=== PATIENT | female | born 1970 | race Caucasian/White ===

== ENCOUNTER → 2018-04-11 | Outpatient (CLI) | payer MEDICARE, MEDICAID | LOC: LAB.O 13:14 | PROVIDERS: ATTEND Family Medicine | DX: K52.9 Noninfective gastroenteritis and colitis, unspecified (principal); E78.5 Hyperlipidemia, unspecified; E10.65 Type 1 diabetes mellitus with hyperglycemia ==

== ENCOUNTER → 2018-04-17 | Outpatient (CLI) | payer MEDICARE, MEDICAID ==
--- NOTE | 2018-04-17 10:11 | MRI ---
EXAM DESCRIPTION: Lumbar Spine w/o Contrast : Magnetic Resonance Imaging. CLINICAL HISTORY: DORSALGIA. Posterior Lumbar fusion since prior MRI scan.. COMPARISON: MRI scan lumbar spine without contrast 02/11/2012. TECHNIQUE: Multiplanar, multiple standard sequences, non contrast MRI, lumbar spine. FINDINGS: L5-S1: Visualized on T 2 axial sequence 501, image 3. Normal signal in the disc with disc space preserved. Bilateral facet arthrosis. Mild canal narrowing. Mild to moderate bilateral foraminal narrowing. L4-5: Bilateral posterior transpedicular fusion with unilateral connecting rods. Interbody fusion device with no significant amount of interosseous fusion. Posterior decompression. Moderate to severe bilateral foraminal narrowing more on the right. No abnormal intraspinal or extraspinal fluid collection or soft tissue edema. Modic type II endplate reactive changes midline and right of midline with disc spur complex encroaching on the right foramen. Spondylosis was not seen on the prior study. L3-4: Minimal disc desiccation with disc space preserved. Arthrosis left facet joint with hypertrophy flavum ligament. Mild bilateral foraminal narrowing and canal is patent. L2-3: Type I Modic endplate reactive changes to the right of midline with Schmorl's nodes and disc space loss. Marrow edema signal also seen in the right L3 pedicle, and the right L2 lamina. Anterior disc bulge and endplate ridging. Posterior broad-based disc osteophyte complex bulge into the canal more in the midline bilateral facet arthrosis and flavum ligament hypertrophy. AP canal diameter 7 mm. Narrowing of the right subarticular recess. Right side disc osteophyte complex encroaching on the foramen with moderate stenosis. Moderate narrowing of the left foramen. Spondylosis, Canal and foraminal stenosis, significantly change from the prior study. L1-2: Disc space preserved with minimal disc desiccation. Schmorl's nodes have enlarged since the prior study. No anterior posterior bulging. Flavum ligament hypertrophy and mild facet arthrosis. Bilateral mild foraminal narrowing more on the left. T12-L1: Schmorl's nodes stable since the prior study with minimal desiccation signal in the disc. Canal and foramina are patent. Facet joints unremarkable with hypertrophy flavum ligaments. Conus terminates at this level. Anterior Modic type II endplate reactive changes at T11-12 and bulging disc has progressed since the prior study. L1-L4 levoscoliosis stable since the prior study Paravertebral soft tissues negative.. Otherwise normal marrow signal in the remaining vertebral bodies and the posterior elements. Vertebral bodies are not compressed at any level. IMPRESSION: 1. Significant progression of L2-3 disc desiccation since 2011, with right side and posterior progression of spondylosis since 2012, resulting in stenosis of the canal and right foramen. Correlate for right L2 radiculopathy. Right subarticular recess narrowing or stenosis. Correlate for right L3 radiculopathy. 2. Posterior and interbody fusion at L4-5 since the prior study as well as progression of right side spondylosis and significant right foraminal encroachment. Correlate for right L4 radiculopathy. 3. More findings noted at other levels above. Electronically signed by: Damion Vargas MD 04/17/2018 10:09 AM [facility]
--- NOTE | 2018-04-18 17:22 | MAM ---
EXAM DESCRIPTION: 3D Screening BILATERAL : Digital Mammography. CLINICAL HISTORY: 47 years Female SCREEN . No complaints. No personal or family history of breast cancer. Childbirth. Hysterectomy 9 years ago. No HRT. Lifetime risk of developing breast cancer (Tyrer-Cuzick model)(%): 12.5%. COMPARISON: Baseline study at this facility.. No prior reports available. Lumbar MRI scan on the same visit. TECHNIQUE: Bilateral CC and MLO projection full-field images, digital tomosynthesis mammographic technique Bilateral digital 2-D full-field MLO images. CAD not available for tomosynthesis or 2-D images. FINDINGS: The breast parenchymal density pattern is: Scattered areas of fibroglandular density. No skin thickening or nipple retraction. Solitary microcalcification in the left breast. No new focal, stellate mass or density, focal asymmetry , and no suspicious microcalcifications bilaterally. IMPRESSION: Benign exam. BIRAD CATEGORY: 2 BENIGN FINDINGS. RECOMMENDATIONS: FOLLOW UP: Routine digital bilateral mammographic screening, one year interval from March 2018. Written communication explaining the IMPRESSION and follow-up, will be mailed to the patient and referring health care provider. According to the [employer], yearly mammograms are recommended starting at age 40 and continuing as long as a woman is in good health. Any breast change noted on a breast self-exam should be reported promptly to the patient's healthcare provider. Breast MRI is recommended for women with an approximately 20-25% or greater lifetime risk of breast cancer, including women with a strong family history of breast or ovarian cancer and women who have been treated for Hodgkin's disease. A negative mammographic report should not delay tissue diagnosis in patients with significant clinical history or physical findings. Extremely dense breast tissue limits the sensitivity of digital mammography. Electronically signed by: Damion Vargas MD 04/18/2018 5:21 PM [employer]
== END ==
LOC: MRI 07:00
PROVIDERS: ATTEND Family Medicine
DX: Z12.31 Encounter for screening mammogram for malignant neoplasm of breast (principal); M54.9 Dorsalgia, unspecified

== ENCOUNTER 2018-07-09 13:57 | Emergency (ER) | payer MEDICARE, MEDICAID ==
--- NOTE | 2018-07-09 14:11 | ED.PDOC ---
History of Present Illness - General Chief Complaint: Abdominal Pain Stated Complaint: abdominal pain Time Seen by Provider: 07/09/18 14:10 Information Source: patient Exam Limitations: no limitations - History of Present Illness Initial Comments: Elena Claros 47 y/o female came to ER with steady sharp rlq pain non radiating followed by abdominal cramps since this morning and had 4-5 episodes of vomiting.Denies hematemesis,dysuria ,hematochezia,hematuria,diarrhea.Had history of DM 2.Unable to take her diabetic medication today. Abdominal Pain Onset Location: RLQ Pain Radiation: no radiation Quality: moderate, cramping Timing/Duration: 7-24 hours Improving Factors: nothing Worsening Factors: nothing Associated Symptoms: other - see hpi Review of Systems - Review of Systems Constitutional: States: no symptoms reported EENTM: States: no symptoms reported Respiratory: States: no symptoms reported Cardiology: States: no symptoms reported Gastrointestinal/Abdominal: States: see HPI Genitourinary: States: no symptoms reported Musculoskeletal: States: no symptoms reported Skin: States: no symptoms reported All other Systems: Reviewed and Negative Past Medical History (General) - Patient Medical History Hx Seizures: No Hx Stroke: No Hx Dementia: No Hx Asthma: No Hx of COPD: No Hx Cardiac Disorders: No Hx Congestive Heart Failure: No Hx Pacemaker: No Hx Hypertension: No Hx Thyroid Disease: No Hx Diabetes: Yes Hx Gastroesophageal Reflux: Yes - and constipation Hx Renal Disease: No Hx Cancer: No Hx of HIV: No Hx Hepatitis C: No Hx MRSA: Yes - Head,Finger 2008, Head 2009, Urine 2010, Face 2011 MRSA Source:: Wound Surgical History: appendectomy, cholecystectomy, other - hysterectomy - Vaccination History Hx Tetanus, Diphtheria Vaccination: No Hx Influenza Vaccination: No Hx Pneumococcal Vaccination: No - Social History Hx Tobacco Use: Yes Hx Chewing Tobacco Use: No Hx Alcohol Use: No Hx Substance Use: Yes Hx Substance Use Treatment: No Hx Depression: Yes Hx Physical Abuse: No Hx Emotional Abuse: No Hx Suspected Abuse: No - Female History Patient : No Family Medical History - Family History Mother Family History: Unknown Hx Family Diabetes: Yes - mom Physical Exam - Physical Exam General Appearance: No apparent distress, Other - in pain Eyes, Ears, Nose, Throat Exam: PERRL/EOMI, normal ENT inspection, pharynx normal Neck: non-tender, full range of motion, supple, normal inspection Respiratory: chest non-tender, lungs clear, normal breath sounds Cardiovascular/Chest: normal peripheral pulses, regular rate, rhythm, no murmur Peripheral Pulses: No deficit Gastrointestinal/Abdominal: normal bowel sounds, soft, tenderness - tenderness RLQ no peritoneal signs Back Exam: no CVA tenderness, no vertebral tenderness Extremity: no pedal edema, no calf tenderness Neurologic: alert, oriented x 3 Skin Exam: other - excoriated lesion face chronic Lymphatic: no adenopathy Progress - Progress Progress: 07/09/18 18:20 Vital Signs - 24 hr 07/09/18 07/09/18 07/09/18 14:10 14:14 15:00 Temperature 97.0 F L Pulse Rate [ 95 H 90 95 H right brachial] Respiratory 24 20 Rate Blood Pressure 158/110 174/116 [right brachial ] O2 Sat by Pulse 96 97 Oximetry 07/09/18 07/09/18 07/09/18 16:00 17:00 18:00 Temperature Pulse Rate [ 94 H 95 H 100 H right brachial] Respiratory 16 20 16 Rate Blood Pressure 157/97 163/110 164/105 [right brachial ] O2 Sat by Pulse 95 94 L 95 Oximetry - Results/Orders Results/Orders: Vital Signs - 8 hr 07/09/18 07/09/18 07/09/18 14:10 14:14 15:00 Temperature 97.0 F L Pulse Rate [ 95 H 90 95 H right brachial] Respiratory 24 20 Rate Blood Pressure 158/110 174/116 [right brachial ] O2 Sat by Pulse 96 97 Oximetry 07/09/18 07/09/18 07/09/18 16:00 17:00 18:00 Temperature Pulse Rate [ 94 H 95 H 100 H right brachial] Respiratory 16 20 16 Rate Blood Pressure 157/97 163/110 164/105 [right brachial ] O2 Sat by Pulse 95 94 L 95 Oximetry 07/09/18 14:12 IV Care:Saline Lock per Protoc QSHIFT 07/09/18 17:46 Urine Culture Stat Laboratory Results - last 24 hr 07/09/18 07/09/18 07/09/18 14:12 14:43 14:43 WBC 12.6 H RBC 5.59 H Hgb 16.9 H Hct 49.5 H MCV 88.5 MCH 30.2 MCHC 34.1 RDW 13.5 Plt Count 286 MPV 8.5 Absolute Neuts (auto) 10.50 H Absolute Lymphs (auto) 1.60 Absolute Monos (auto) 0.40 Absolute Eos (auto) 0.10 Absolute Basos (auto) 0.00 Neutrophils % 83.6 H Lymphocytes % 12.6 L Monocytes % 2.9 Eosinophils % 0.5 L Basophils % 0.4 PT 10.3 INR 1.03 PTT (SP) 22.8 Sodium 135 Potassium 3.9 Chloride 99 L Carbon Dioxide 20 L Anion Gap 19.9 H BUN 24 H Creatinine 0.68 BUN/Creatinine Ratio 35.3 H Random Glucose 353 H Serum Osmolality 288.3 Calcium 9.6 Magnesium 1.7 L Total Bilirubin 0.4 Direct Bilirubin < 0.1 Indirect Bilirubin 0.3 AST 23 ALT 23 Alkaline Phosphatase 75 Creatine Kinase 37 CK-MB (CK-2) 2.2 CK-MB (CK-2) % Not Reportable Troponin I < 0.02 Serum Total Protein 8.5 H Albumin 4.1 Lipase 59 H Urine Color Urine Appearance Urine pH Ur Specific [place] Urine Protein Urine Glucose (UA) Urine Ketones Urine Blood Urine Nitrite Urine Bilirubin Urine Urobilinogen Ur Leukocyte Esterase Urine RBC Urine WBC Ur Epithelial Cells Urine Bacteria Urine Opiates Screen Negative Urine Barbiturates Negative Ur Phencyclidine Scrn Negative U Amphetamin/Meth Scrn Negative U Benzodiazepines Scrn Negative U Cocaine Metab Screen Negative U Cannabinoids Screen Negative Ethyl Alcohol < 5.40 07/09/18 17:46 WBC RBC Hgb Hct MCV MCH MCHC RDW Plt Count MPV Absolute Neuts (auto) Absolute Lymphs (auto) Absolute Monos (auto) Absolute Eos (auto) Absolute Basos (auto) Neutrophils % Lymphocytes % Monocytes % Eosinophils % Basophils % PT INR PTT (SP) Sodium Potassium Chloride Carbon Dioxide Anion Gap BUN Creatinine BUN/Creatinine Ratio Random Glucose Serum Osmolality Calcium Magnesium Total Bilirubin Direct Bilirubin Indirect Bilirubin AST ALT Alkaline Phosphatase Creatine Kinase CK-MB (CK-2) CK-MB (CK-2) % Troponin I Serum Total Protein Albumin Lipase Urine Color Yellow Urine Appearance Sl cloudy Urine pH 5.5 Ur Specific [place] 1.020 Urine Protein 100 H Urine Glucose (UA) 500 H Urine Ketones 15 H Urine Blood Small H Urine Nitrite Negative Urine Bilirubin Negative Urine Urobilinogen 0.2 Ur Leukocyte Esterase Small H Urine RBC 1-3 Urine WBC 3-5 H Ur Epithelial Cells 5-10 Urine Bacteria 1+ Urine Opiates Screen Urine Barbiturates Ur Phencyclidine Scrn U Amphetamin/Meth Scrn U Benzodiazepines Scrn U Cocaine Metab Screen U Cannabinoids Screen Ethyl Alcohol Discuss all test result with patient - EKG/XRAY/CT CT Ordered: Yes - no acute abnormalities noted Departure - Departure Clinical Impression: Abdominal pain Qualifiers: Abdominal location: right lower quadrant Qualified Code(s): R10.31 - Right lower quadrant pain Hyperglycemia due to type 2 diabetes mellitus Qualifiers: Diabetes mellitus moth exterminator insulin use: without moth exterminator use Qualified Code(s): E11.65 - Type 2 diabetes mellitus with hyperglycemia Urinary tract infection Qualifiers: Urinary tract infection type: site unspecified Hematuria presence: with hematuria Qualified Code(s): N39.0 - Urinary tract infection, site not specified; R31.9 - Hematuria, unspecified Time of Disposition: 18:24 Disposition: Discharge to Home or Self Care Condition: Fair Departure Forms: ED Discharge - Pt. Copy, Patient Portal Self Enrollment Instructions: DI for Abdominal Pain-Adult Diet: bland diet, other - Avoid greasy /spicy foods until better Referrals: Ramon Torres MD [Primary Care Provider] - 1-2 Weeks Prescriptions: Nitrofurantoin Monohydrate Mac [Macrobid] 100 mg PO BID 7 Days #14 capsule Home Medications: Ambulatory Orders Atorvastatin Calcium [Lipitor] 10 mg PO DAILY 07/09/18 Citalopram Hydrobromide [Citalopram] 20 mg PO DAILY 07/09/18 Gabapentin 300 mg PO TID 07/09/18 Meloxicam [Mobic] 7.5 mg PO BID 07/09/18 Metformin HCl 500 mg PO BID 07/09/18 Nitrofurantoin Monohydrate Mac [Macrobid] 100 mg PO BID 7 Days #14 capsule 07/09/18 Tramadol HCl 50 mg PO Q6H PRN 07/09/18 Additional Instructions: Return to Emergency room as needed;Baby aspirin one tablet daily;Follow up with primary Md 10 July 2018 for recheck
[2018-07-09] MEDS ORDERED: MORPHINE SULFATE INJ 10 MG/ML VIAL IV ONE (14:12)
[2018-07-09] MEDS ORDERED: PROCHLORPERAZINE INJ 10 MG/2 ML VIAL IV ONE (14:12)
[2018-07-09 14:19] VITALS: TEMP 97
[2018-07-09] MEDS ORDERED: ONDANSETRON INJ 4 MG/2 ML VIAL IV ONE (15:12)
[2018-07-09] MEDS ORDERED: SODIUM CHLORIDE 0.9% 1000ML 1,000 ML IVS ONE (16:08)
--- NOTE | 2018-07-09 16:51 | CT ---
PROCEDURE: CT Abdomen and Pelvis Without Intravenous Contrast CLINICAL INDICATION: The patient is 47 years years old, Female; RLQ pain TECHNIQUE: Axial computed tomography images of the abdomen and pelvis without intravenous contrast. Sagittal and coronal reformatted images were created and reviewed. This CT exam was performed using one or more of the following dose reduction techniques: automated exposure control, adjustment of the mA and/or kV according to patient size, and/or use of iterative reconstruction technique. COMPARISON: No relevant prior studies available. FINDINGS: LUNG BASES: The lung bases are clear with the exception of minimal dependent atelectasis. PLEURAL SPACE: No pleural effusions or pneumothoraces. MEDIASTINUM: There is a small sliding-type hiatal hernia. ABDOMEN: LIVER: Unremarkable. The liver is normal in size and configuration. There are no significant focal defects. There is no evidence of biliary ductal dilatation. GALLBLADDER AND BILE DUCTS: The gallbladder is absent status post cholecystectomy with surgical clips in the gallbladder fossa. PANCREAS: Unremarkable. No ductal dilatation, inflammatory changes or mass. SPLEEN: There is borderline splenomegaly with spleen measuring 12.4 cm longitudinally. ADRENALS: Unremarkable. No mass or calcification. KIDNEYS AND URETERS: Unremarkable. There are no acute findings. There is no evidence of solid renal mass, nonobstructive intrarenal calculi or pelvocaliectases/ureterectases. STOMACH AND BOWEL: The remainder of the stomach as well as the small bowel are unremarkable. There are small number of colonic diverticula predominating in the descending and sigmoid colon. The rectum is unremarkable PELVIS: APPENDIX: The appendix is not identified with surgical clips along the tip of the cecum suggesting previous appendectomy. BLADDER: Unremarkable, allowing for the degree of distention. There is no evidence of cystolithiasis or bladder mass. REPRODUCTIVE: The uterus is not identified. There are no adnexal masses. ABDOMEN and PELVIS: INTRAPERITONEAL SPACE: There is no evidence of free air or free fluid. BONES/JOINTS: There is moderate to severe narrowing of the disc space at L2-3 with eburnation and vacuum phenomenon indicating degenerative disc disease. Moreover there is some endplate erosive changes such that infection is not excluded. There is multilevel vertebral body marginal osteophytosis consistent with lumbar spondylosis. No areas of osseous destruction or osteoblastic changes. There are no acute fractures. There are postoperative changes of posterior lumbar decompression and fusion from L4-L5 with transpediculate stabilization and placement of a disc spacers. Orthopedic hardware is intact and without evidence of loosening. There is mild levoconvex lumbar scoliosis. SOFT TISSUES: Unremarkable. VASCULATURE: There is severe right coronary atherosclerosis as well as mild atherosclerosis in the visualized LAD and left circumflex coronary arteries. LYMPH NODES: Unremarkable. There is no evidence of hilar, mediastinal or axillary adenopathy. IMPRESSION: 1. There is moderate to severe narrowing of the disc space at L2-3 with eburnation and vacuum phenomenon indicating degenerative disc disease. Moreover there is some endplate erosive changes such that infection is not excluded. 2. Three-vessel coronary atherosclerosis, particularly severe in the right coronary artery. 3. No significant acute intra-abdominal or pelvic process status post prior appendectomy and cholecystectomy Electronically signed by: Nel Ramos MD 07/09/2018 4:48 PM CDT
[2018-07-09] MEDS ORDERED: NITROFURANTOIN MONOHYDRATE MAC 100 MG CAP PO ONE (18:23)
[2018-07-09] MEDS ORDERED: PROMETHAZINE TAB (ER DISP) 25 MG TAB PO ONE (18:23)
[2018-07-09] MEDS ORDERED: HYDROCOD/APAP 10/325 (ER DISP) # 3 tablets PO ONE (18:23)
[2018-07-09] MEDS ORDERED: cloNIDine HCL 0.1 MG TAB PO ONE (18:53)
[2018-07-09 19:13] VITALS: BP 172/117; O2SAT 98
== END 2018-07-09 19:05 | disposition home or self-care (01) ==
LOC: ER 13:57
DX: N39.0 Urinary tract infection, site not specified (principal); R10.31 Right lower quadrant pain; E11.65 Type 2 diabetes mellitus with hyperglycemia; K21.9 Gastro-esophageal reflux disease without esophagitis; F32.9 Major depressive disorder, single episode, unspecified; Z90.49 Acquired absence of other specified parts of digestive tract; Z87.891 Personal history of nicotine dependence
CPT/HCPCS: 36415; 74176; 80048; 80076; 80307; 80320; 81001; 82550; 82553; 83690; 84484; 85025; 85610; 85730; 87086; J0780; J2270; J2405; J7030; Q0169

== ENCOUNTER 2018-11-30 09:01 | Emergency (ER) | payer MEDICARE, MEDICAID ==
[2018-11-30] MEDS ORDERED: SODIUM CHLORIDE 0.9% (FLUSH) 10 ML SYG IV PRN (09:23)
[2018-11-30] MEDS ORDERED: ONDANSETRON INJ 4 MG/2 ML VIAL IV ONE (09:23)
[2018-11-30] MEDS ORDERED: SODIUM CHLORIDE 0.9% 1000ML 1,000 ML IVS PRN (09:23)
[2018-11-30] MEDS ORDERED: MORPHINE SULFATE INJ 10 MG/ML VIAL IV ONE ×2 (09:25→11:17)
--- NOTE | 2018-11-30 11:34 | CT ---
EXAM DESCRIPTION: Abdomen/Pelvis w/Contrast: Computed Tomography. CLINICAL HISTORY: 47 years Female right flank pain, recent dx c. Diff colitis COMPARISON: CT abdomen and pelvis without contrast 07/09/2018. TECHNIQUE: Spiral-axial scans at 5 x 5 mm intervals through the abdomen and pelvis, after nonionic IV contrast and water-soluble oral contrast. Coronal and sagittal 2.0 mm reconstructions. No delayed scans. No adverse reactions. Total Exam DLP: 612.45 mGy-cm. This exam was performed according to our departmental dose-optimization program which includes automated exposure control, adjustment of the mA and/or kV according to patient size and/or use of iterative reconstruction technique; to reduce radiation dose to as low as reasonably achievable (ALARA). FINDINGS: Lung bases and pleura: Bilateral pleural effusion left moderate. Acute. Coronary artery stents and/or calcifications stable. Liver, Stomach, Spleen, Adrenal Glands: Long axis right lobe 19.8 cm compared to 17.5 cm on the prior study. Long axis spleen 13.7 centimeters compared to 11.1 cm on the prior study. No focal hepatic or splenic lesions, but minimal intrahepatic biliary dilatation. Stomach minimally distended by fluid, similar to the prior study. And adrenal glands negative Pancreas, Gallbladder, Ducts: Prior cholecystectomy. No fluid in the gallbladder fossa. Typical duct dilation stable. Pancreas and duct negative and stable. Kidneys and Ureters: Small cyst lateral left kidney. No hydronephrosis or stones bilaterally. No perirenal stranding or fluid. Ureters negative. Mesentery: No ascites or free intraperitoneal air. No fatty stranding or fascial thickening. Aorta: Moderate atherosclerotic calcification. Narrowing distal aortic lumen. Small Bowel: Minimal distention of multiple segments with air-fluid levels.w Terminal Ileum/Cecum: Fecalization of the TI. Distention of the cecum by moderate amount of fecal material noted with contrast white material. Patient received no oral or rectal contrast. Surgical clips versus calcifications serosa junction of the ascending colon and cecum laterally. Appendix not seen. No surrounding inflammatory changes. Colon: Moderate amount of fecal material with contrast slight material. This extends into the ascending colon and transverse colon distally with decreasing amount of contrast like material. Redundancy of the splenic flexure. Gas and fecal matter to the descending colon. Moderate redundancy of the sigmoid colon distended with gas and air-fluid levels and fecal matter. Diverticula but no complications. Pelvic Organs: No radiodense stones in the urinary bladder which is decompressed and contains a catheter with balloon inflated. Vaginal cuff negative with trace amount of fluid in the cul-de-sac. Fecal matter in the rectum. Spine and Bony Pelvis: Spondylosis L2-3 with posterior disc bulging borderline canal and foraminal stenosis. Bilateral posterior L4-L5 fusion construct with canal and foraminal narrowing. Minimal spondylosis in the included thoracic spine. Findings in the spine are stable since the prior study. Degenerative gas formation and periarticular degenerative changes in the distal left SI joint stable since the prior study. Minimal arthrosis bilateral hip joint stable. Stable left femoral head over coverage by atrophic acetabulum. Abdominal Wall/Back Soft Tissues: Diffuse bilateral wall edema or anasarca, increased from the prior study. Bilateral small fatty inguinal hernias not containing bowel. Small surgical defect in the anterior abdominal midline at the umbilicus but no herniation. IMPRESSION: 1. Moderate colonic constipation involving most of the colon has increased since the prior study. Contrast material in the cecum and ascending colon and most of the transverse colon. Did patient have recent oral contrast study elsewhere? Small bowel stasis without definite obstruction most likely due to fecal burden in the colon. Distal diverticulosis but no complications. 2. Bilateral kidneys and ureters negative. Urinary bladder decompressed by catheter. Trace fluid in the cul-de-sac but no definite pelvic mass. 3. Hepatomegaly and splenomegaly, with increased size of both organs since the prior study. No ascites. Bilateral pleural effusion moderate on the left. No ascites. 4. Moderate spondylosis at L2-L3 significant foraminal and canal narrowing or stenosis and disc bulging, stable since the prior study. No complications bilateral L4-L5 posterior fusion. Stable arthrosis inferior left SI joint. 5. Bilateral anasarca in the abdominal and pelvic soft tissues has increased since the prior study. Small inguinal hernias are stable. Electronically signed by: Damion Vargas MD 11/30/2018 11:32 AM CDT
--- NOTE | 2018-11-30 11:56 | ED.PDOC ---
History of Present Illness - General Chief Complaint: Abdominal Pain Stated Complaint: Abdomnial pain Time Seen by Provider: 11/30/18 09:13 - History of Present Illness Initial Comments: The patient is a 47F with history of MRSA sepsis currently admitted to SNF for retirement antibiotics complicated by c. diff infection who presents to the ED with abdominal pain. The pain started this morning and is generalized, cramping in nature. Associated with nausea, no vomiting. Last bowel movement was yesterday and normal for her. No fevers, chills, diarrhea, dysuria or other complaints at this time. Review of Systems - Review of Systems Constitutional: Denies: chills, fever EENTM: States: no symptoms reported Respiratory: Denies: cough, short of breath Cardiology: Denies: chest pain, edema, palpitations Gastrointestinal/Abdominal: States: abdominal pain, nausea. Denies: vomiting Genitourinary: Denies: dysuria, frequency, hematuria Musculoskeletal: States: no symptoms reported Skin: States: no symptoms reported Neurological: States: no symptoms reported Endocrine: States: no symptoms reported Hematologic/Lymphatic: States: no symptoms reported All other Systems: Reviewed and Negative Past Medical History (General) - Patient Medical History Hx Seizures: No Hx Stroke: No Hx Dementia: No Hx Asthma: No Hx of COPD: No Hx Cardiac Disorders: Yes Hx Congestive Heart Failure: No Hx Pacemaker: No Hx Hypertension: No Hx Thyroid Disease: No Hx Diabetes: Yes Hx Gastroesophageal Reflux: Yes - and constipation Hx Renal Disease: No Hx Cancer: No Hx of HIV: No Hx Hepatitis C: No Hx MRSA: Yes - Head,Finger 2008, Head 2009, Urine 2010, Face 2011 MRSA Source:: Wound Surgical History: cholecystectomy, tonsillectomy - Vaccination History Hx Tetanus, Diphtheria Vaccination: Yes Hx Influenza Vaccination: Yes Hx Pneumococcal Vaccination: No - Social History Hx Tobacco Use: Yes Hx Chewing Tobacco Use: No Hx Alcohol Use: No Hx Substance Use: Yes Hx Substance Use Treatment: Yes Hx Depression: Yes Hx Physical Abuse: No Hx Emotional Abuse: No Hx Suspected Abuse: No - Activities of Daily Living Assisted/Assisted Living (if applicable):: [facility] - Female History Patient is a Female of Child Bearing Age (10 -59 yrs old): Yes Patient : No - Complete hyst Family Medical History - Family History Mother Family History: Unknown Living Status: Still Living Hx Family Diabetes: Yes - mom Physical Exam - Physical Exam General Appearance: Alert, Ill Appearing, Obese Eyes, Ears, Nose, Throat Exam: normal ENT inspection Neck: full range of motion Respiratory: no respiratory distress, no accessory muscle use Cardiovascular/Chest: regular rate, rhythm, no murmur Peripheral Pulses: No deficit Gastrointestinal/Abdominal: normal bowel sounds, tenderness - diffuse tenderness without focal findings Extremity: normal range of motion, normal inspection Neurologic: no motor/sensory deficits, alert, normal mood/affect, oriented x 3 Progress - Progress Progress: 11/30/18 11:32 Patient reassessed, abdominal pain has improved. Repeat abdominal exam is benign at this time. Awaiting labs and imaging. 11/30/18 11:43 CT reviewed, shows moderate constipation with stasis, no obstruction. See report for further details. 11/30/18 11:59 11/30/18 09:23 Sodium Chloride 0.9% (Flush) [Saline Flush Syringe] 10 ml IV PRN PRN Sodium Chloride 0.9% 1000ML [Ns 1000 ml] 1,000 ml IVS .QD 11/30/18 09:24 Hold Metformin x 48Hrs [id number] 11/30/18 09:30 EKG STAT Laboratory Results - last 24 hr 11/30/18 11/30/18 11/30/18 09:44 09:44 11:23 WBC 5.7 RBC 3.31 L Hgb 9.6 L Hct 29.5 L MCV 89.1 MCH 29.2 MCHC 32.7 L RDW 16.4 H Plt Count 369 MPV 6.9 L Absolute Neuts (auto) 3.90 Absolute Lymphs (auto) 1.20 Absolute Monos (auto) 0.40 Absolute Eos (auto) 0.10 Absolute Basos (auto) 0.10 Neutrophils % 68.1 Lymphocytes % 21.6 Monocytes % 6.9 Eosinophils % 2.4 Basophils % 1.0 Sodium 136 Potassium 4.0 Chloride 98 L Carbon Dioxide 25 Anion Gap 17.0 BUN 20 H Creatinine 0.66 BUN/Creatinine Ratio 30.3 H Random Glucose 249 H Serum Osmolality 282.9 Calcium 9.2 Total Bilirubin 0.5 Direct Bilirubin < 0.1 Indirect Bilirubin 0.4 AST 17 ALT 11 Alkaline Phosphatase 56 Serum Total Protein 8.8 H Albumin 3.0 L Lipase 22 Urine Color Yellow Urine Appearance Clear Urine pH 7.0 Ur Specific [employer] [place] 1.010 Urine Protein Negative Urine Glucose (UA) Negative Urine Ketones Negative Urine Blood Negative Urine Nitrite Negative Urine Bilirubin Negative Urine Urobilinogen 0.2 Ur Leukocyte Esterase Trace H Urine RBC 0 Urine WBC 0-1 Ur Epithelial Cells 0 Urine Bacteria 0 Urine Yeast 1+ budding H 11/30/18 12:00 Patient reassessed, workup shows constipation and stasis, no acute abdominal findings. Repeat abdominal exam is benign. Will continue outpatient symptomatic management and she will continue usual medications. Will add miralax, colace. Return indications reviewed. MDM Patient presents to the ED with generalized cramping abdominal pain. Workup consistent with constipation and colonic stasis, no evidence for acute intra- abdominal process. Pain controlled, repeat abdominal exam benign. Started on miralax and colace. Will continue outpatient symptomatic management and she will follow up with her PCP. Home care instructions and return indications reviewed. Departure - Departure Clinical Impression: Abdominal pain Qualifiers: Abdominal location: generalized Qualified Code(s): R10.84 - Generalized abdominal pain Time of Disposition: 12:06 Disposition: Discharge to Rehab Facility Condition: Good Departure Forms: ED Discharge - Pt. Copy, Patient Portal Self Enrollment Diet: resume usual diet Referrals: Ramon Torres MD [Primary Care Provider] - 1-2 Weeks Prescriptions: Dicyclomine HCl [Bentyl] 20 mg PO Q6HR PRN #20 tab PRN Reason: Pain Docusate Sodium [Colace Cap] 100 mg PO BID #20 cap Polyethylene Glycol 3350 [Miralax] 17 gm PO DAILY 20 Days #20 pckt Home Medications: Ambulatory Orders Atorvastatin Calcium [Lipitor] 10 mg PO DAILY 07/09/18 Citalopram Hydrobromide [Citalopram] 20 mg PO DAILY 07/09/18 Gabapentin 300 mg PO TID 07/09/18 Meloxicam [Mobic] 7.5 mg PO BID 07/09/18 Metformin HCl [Metformin Hydrochloride] 500 mg PO BID 07/09/18 Nitrofurantoin Monohydrate Mac [Macrobid] 100 mg PO BID 7 Days #14 capsule 07/09/18 Tramadol HCl 50 mg PO Q6H PRN 07/09/18 Acetaminophen W/ Codeine [Tylenol W/ CODEINE #3] 1 ea PO Q6H #15 08/15/18 Doxycycline (Monohydrate) [Doxycycline Monohydrate] 100 mg PO BID #20 cap 08/15/18 Sulfa/Trimeth 800/160 (Ds) Tab [Bactrim DS Tab] 1 unit PO BID #20 tab 08/15/18 Dicyclomine HCl [Bentyl] 20 mg PO Q6HR PRN #20 tab 11/30/18 Docusate Sodium [Colace Cap] 100 mg PO BID #20 cap 11/30/18 Polyethylene Glycol 3350 [Miralax] 17 gm PO DAILY 20 Days #20 pckt 11/30/18
[2018-11-30 13:14] VITALS: BP 109/77; TEMP 97.4; O2SAT 100
== END 2018-11-30 12:57 ==
LOC: ER 09:01
DX: R10.84 Generalized abdominal pain (principal); R11.0 Nausea; F32.9 Major depressive disorder, single episode, unspecified; I51.9 Heart disease, unspecified; E11.9 Type 2 diabetes mellitus without complications; K21.9 Gastro-esophageal reflux disease without esophagitis; Z90.49 Acquired absence of other specified parts of digestive tract; Z87.891 Personal history of nicotine dependence
CPT/HCPCS: 74177; 80048; 80076; 81001; 83690; 85025; 93005; J2270; J2405; J7030

== ENCOUNTER 2018-12-05 22:38 | Emergency (ER) | payer MEDICARE, MEDICAID ==
[2018-12-05 22:52] VITALS: TEMP 97.4
[2018-12-05] MEDS ORDERED: IBUPROFEN 400 MG TAB PO ONE (23:05)
[2018-12-05] MEDS ORDERED: ACETAMINOPHEN 325 MG TAB PO ONE (23:05)
--- NOTE | 2018-12-05 23:27 | ED.PDOC ---
History of Present Illness - General Chief Complaint: Lower Extremity Injury Stated Complaint: rt calf /leg redness Time Seen by Provider: 12/05/18 22:41 Source: patient, RN notes reviewed, Vital Signs reviewed, RN/MD - History of Present Illness Initial Comments: Patient is a 47 yo Diabetic female with hx of PE on eliquis presenting with RLE erythema and pain over the past 24 hours. She is currently being treated with IV Vancomycin for MRSA. She states that her RLE started to become red and more painful over the past 24 hours. She otherwise has been feeling well. She notices the redness in the previous sites of her cellulitis. She denies any fevers, chills, nausea, vomiting, chest pain or SOB. Occurred: yesterday Pain - Lower Extremity: severe: Right Hare Method of Injury: unknown Improving Factors: nothing Worsening Factors: nothing Allergies/Adverse Reactions: Allergies NO KNOWN ALLERGY Allergy (Verified 11/30/18 09:32) Home Medications: Ambulatory Orders Atorvastatin Calcium [Lipitor] 10 mg PO DAILY 07/09/18 Citalopram Hydrobromide [Citalopram] 20 mg PO DAILY 07/09/18 Gabapentin 300 mg PO TID 07/09/18 Nitrofurantoin Monohydrate Mac [Macrobid] 100 mg PO BID 7 Days #14 capsule 07/09/18 RX: Meloxicam [Mobic] 7.5 mg PO BID 07/09/18 RX: Metformin HCl [Metformin Hydrochloride] 500 mg PO BID 07/09/18 Tramadol HCl 50 mg PO Q6H PRN 07/09/18 Acetaminophen W/ Codeine [Tylenol W/ CODEINE #3] 1 ea PO Q6H #15 08/15/18 RX: Doxycycline (Monohydrate) [Doxycycline Monohydrate] 100 mg PO BID #20 cap 08/15/18 Sulfa/Trimeth 800/160 (Ds) Tab [Bactrim DS Tab] 1 unit PO BID #20 tab 08/15/18 Dicyclomine HCl [Bentyl] 20 mg PO Q6HR PRN #20 tab 11/30/18 Docusate Sodium [Colace Cap] 100 mg PO BID #20 cap 11/30/18 Polyethylene Glycol 3350 [Miralax] 17 gm PO DAILY 20 Days #20 pckt 11/30/18 Review of Systems - Review of Systems Constitutional: Denies: chills, fever EENTM: States: no symptoms reported Respiratory: States: no symptoms reported. Denies: cough, short of breath Cardiology: Denies: chest pain Gastrointestinal/Abdominal: States: no symptoms reported Skin: States: change in color, rash Past Medical History (General) - Patient Medical History Hx Seizures: No Hx Stroke: No Hx Dementia: No Hx Asthma: No Hx of COPD: No Hx Cardiac Disorders: Yes Hx Congestive Heart Failure: No Hx Pacemaker: No Hx Hypertension: No Hx Thyroid Disease: No Hx Diabetes: Yes Hx Gastroesophageal Reflux: Yes - and constipation Hx Renal Disease: No Hx Cancer: No Hx of HIV: No Hx Hepatitis C: No Hx MRSA: Yes - Head,Finger 2008, Head 2009, Urine 2010, Face 2011 MRSA Source:: Wound Surgical History: appendectomy, cholecystectomy - Vaccination History Hx Tetanus, Diphtheria Vaccination: Yes Hx Influenza Vaccination: Yes Hx Pneumococcal Vaccination: No Immunizations Up to Date: No - Social History Hx Tobacco Use: Yes Hx Chewing Tobacco Use: No Hx Alcohol Use: No Hx Substance Use: Yes Hx Substance Use Treatment: Yes Hx Depression: Yes Hx Physical Abuse: No Hx Emotional Abuse: No Hx Suspected Abuse: No - Activities of Daily Living Intermediate/Assisted Living (if applicable):: [facility] - Female History Patient : No Family Medical History - Family History Mother Family History: Unknown Living Status: Still Living Hx Family Diabetes: Yes - mom Physical Exam - Physical Exam General Appearance: Alert, No apparent distress Neck: full range of motion, supple Cardiovascular/Respiratory: regular rate, rhythm, no M/R/G, normal peripheral pulses, no JVD, normal breath sounds, no respiratory distress Gastrointestinal/Abdominal: non-tender Leg: soft tissue tenderness Skin: rash - Erythema to RLE on anterior surface approximatley 6-8 cm irregularly shaped region Progress - Progress Progress: DDx: DVT, Cellulitis, Abscess, Drug reaction patient presents for evaluation of RLE pain. She was overall appearing and non- toxic. She was afebrile. She has been on anti-coagulation for her PE without missed dosages. Bedside Ultrasound was performed to assess for DVT as formal was unable to be obtained. There was no signs of DVT on ultrasound. Her exam was more sugestive of cellulitis and there was cobblestoning on ultrasound to suggest free fluid within the soft tissue of the RLE. Her symptoms and exam were not consistent with abscess or venous stasis dermatitis. Patient is already on Vancomycin IV. She will be discharged home with plans for outpatient follow-up. Departure - Departure Clinical Impression: Cellulitis of leg Time of Disposition: 23:26 Disposition: Discharge to Rehab Facility Departure Forms: ED Discharge - Pt. Copy, Patient Portal Self Enrollment Instructions: DI for Leg Pain, Cellulitis (Skin Infection), Adult (DC) Diet: resume usual diet Activity: as per physical therapy Referrals: Ramon Torres MD [Primary Care Provider] - 1-2 Weeks Home Medications: Ambulatory Orders Atorvastatin Calcium [Lipitor] 10 mg PO DAILY 07/09/18 Citalopram Hydrobromide [Citalopram] 20 mg PO DAILY 07/09/18 Gabapentin 300 mg PO TID 07/09/18 Nitrofurantoin Monohydrate Mac [Macrobid] 100 mg PO BID 7 Days #14 capsule 07/09/18 RX: Meloxicam [Mobic] 7.5 mg PO BID 07/09/18 RX: Metformin HCl [Metformin Hydrochloride] 500 mg PO BID 07/09/18 Tramadol HCl 50 mg PO Q6H PRN 07/09/18 Acetaminophen W/ Codeine [Tylenol W/ CODEINE #3] 1 ea PO Q6H #15 08/15/18 RX: Doxycycline (Monohydrate) [Doxycycline Monohydrate] 100 mg PO BID #20 cap 08/15/18 Sulfa/Trimeth 800/160 (Ds) Tab [Bactrim DS Tab] 1 unit PO BID #20 tab 08/15/18 Dicyclomine HCl [Bentyl] 20 mg PO Q6HR PRN #20 tab 11/30/18 Docusate Sodium [Colace Cap] 100 mg PO BID #20 cap 11/30/18 Polyethylene Glycol 3350 [Miralax] 17 gm PO DAILY 20 Days #20 pckt 11/30/18 Comments: Huey Coburn D.O. [facility] #[id number]
[2018-12-05] MEDS ORDERED: IBUPROFEN 200 MG TAB ONE (23:33)
[2018-12-06 00:23] VITALS: BP 122/83; O2SAT 97
== END 2018-12-06 00:20 ==
LOC: ER 22:38
DX: L03.115 Cellulitis of right lower limb (principal); F32.9 Major depressive disorder, single episode, unspecified; I51.9 Heart disease, unspecified; E11.9 Type 2 diabetes mellitus without complications; K21.9 Gastro-esophageal reflux disease without esophagitis; Z86.14 Personal history of Methicillin resistant Staphylococcus aureus infection; Z79.01 Long term (current) use of anticoagulants; Z86.711 Personal history of pulmonary embolism; Z79.899 Other long term (current) drug therapy; Z79.84 Long term (current) use of oral hypoglycemic drugs

== ENCOUNTER 2018-12-18 05:12 | Emergency (ER) | payer MEDICARE, MEDICAID ==
[2018-12-18] MEDS ORDERED: MORPHINE SULFATE INJ 10 MG/ML VIAL IV ONE (05:20)
[2018-12-18] MEDS ORDERED: ONDANSETRON INJ 4 MG/2 ML VIAL IV ONE ×2 (05:20→07:45)
--- NOTE | 2018-12-18 05:29 | ED.PDOC ---
History of Present Illness <Ermias Dinero - Last Filed: 12/18/18 08:18> - General Information Source: patient, RN notes reviewed, Vital Signs reviewed, EMS notes reviewed, half-way records, old records Exam Limitations: no limitations - History of Present Illness Initial Comments: Pt is a 48 yo female that presents via EMS from rehab facility for left sided abdominal pain for 1 week. She was hospitalized in October 2018 for PE, now on Eliquis, and MRSA infection, now has indwelling Law and currently in rehab due to generalized weakness after hospitalization. Reports 1 week h/o left sided abdominal pain that radiates to left flank. Has had nausea. Had 1 episode of diarrhea 3 days ago. Denies fever, chills, vomiting. Has been taking Tylenol #3 at rehab that is not controlling her pain. Denies CP, SOB, syncope. <Sanket Huerta - Last Filed: 01/13/19 06:58> - General Chief Complaint: Abdominal Pain Stated Complaint: abdominal pain Time Seen by Provider: 12/18/18 05:18 Review of Systems - Review of Systems Constitutional: Denies: chills, fever, weakness EENTM: States: no symptoms reported Respiratory: Denies: cough, short of breath, wheezing Cardiology: Denies: chest pain, edema, palpitations, syncope Gastrointestinal/Abdominal: States: abdominal pain, nausea. Denies: vomiting Genitourinary: States: other - indwelling Law Musculoskeletal: Denies: joint pain, joint swelling, muscle pain Skin: Denies: rash Neurological: Denies: headache, paresthesia, weakness All other Systems: Reviewed and Negative <Sanket Huerta - Last Filed: 01/13/19 06:58> Past Medical History (General) - Patient Medical History Hx Seizures: No Hx Stroke: No Hx Dementia: No Hx Asthma: No Hx of COPD: No Hx Cardiac Disorders: Yes Hx Congestive Heart Failure: No Hx Pacemaker: No Hx Hypertension: No Hx Thyroid Disease: No Hx Diabetes: Yes Hx Gastroesophageal Reflux: Yes - and constipation Hx Renal Disease: No Hx Cancer: No Hx of HIV: No Hx Hepatitis C: No Hx MRSA: Yes - Head,Finger 2008, Head 2009, Urine 2010, Face 2011 MRSA Source:: Wound - Vaccination History Hx Tetanus, Diphtheria Vaccination: Yes Hx Influenza Vaccination: Yes Hx Pneumococcal Vaccination: No - Social History Hx Tobacco Use: Yes Hx Chewing Tobacco Use: No Hx Alcohol Use: No Hx Substance Use: Yes Hx Substance Use Treatment: Yes Hx Depression: Yes Hx Physical Abuse: No Hx Emotional Abuse: No Hx Suspected Abuse: No - Female History Patient : No <Sanket Huerta Kasi - Last Filed: 01/13/19 06:58> Family Medical History - Family History Mother Family History: Unknown Living Status: Still Living Hx Family Diabetes: Yes - mom <Sanket Huerta - Last Filed: 01/13/19 06:58> Physical Exam - Physical Exam General Appearance: Alert, Comfortable, No apparent distress, Obese Eyes, Ears, Nose, Throat Exam: pharynx normal Neck: non-tender, full range of motion, supple Respiratory: chest non-tender, lungs clear, normal breath sounds, no respiratory distress, no accessory muscle use Cardiovascular/Chest: normal peripheral pulses, regular rate, rhythm, no edema, no murmur Gastrointestinal/Abdominal: normal bowel sounds, soft - TTP left abdomen. No giarding or rigidity Pelvic Exam: other - Law catheter in place Back Exam: normal inspection, no CVA tenderness, no vertebral tenderness Extremity: normal range of motion, non-tender, no pedal edema Neurologic: no motor/sensory deficits, alert, normal mood/affect Skin Exam: normal color, warm/dry <Sanket Huerta - Last Filed: 01/13/19 06:58> Progress - Progress Progress: 12/18/18 07:52 CT abd/pelvis IMPRESSION: Interval development of right lower lobe reticulonodular infiltrate/pneumonia Constipation Electronically signed by: Billy Stephenson MD 12/18/2018 7:35 AM CDT 12/18/18 07:53 CT is being read as RLL infiltrate. Patient does not have any symptoms of cough, shortness of breath or fevers. No leukocytosis. Will trial course of outpatient antibiotics. [facility] Din[facility] #[id number] <Ermias Dinero - Last Filed: 12/18/18 08:18> - Progress Progress: 12/18/18 05:32 Sanket Huerta #[id number] <Sanket Huerta - Last Filed: 01/13/19 06:58> Departure <Ermias Dinero - Last Filed: 12/18/18 08:18> <BradleySanket hall - Last Filed: 01/13/19 06:58> - Departure Clinical Impression: Lower abdominal pain Pneumonia Qualifiers: Pneumonia type: due to unspecified organism Laterality: right Lung location: lower lobe of lung Qualified Code(s): J18.1 - Lobar pneumonia, unspecified orga nism Disposition: Discharge to Home or Self Care Condition: Good Departure Forms: ED Discharge - Pt. Copy, Patient Portal Self Enrollment Instructions: DI for Abdominal Pain-Adult Referrals: Ramon Torres MD [Primary Care Provider] - 1-2 Weeks Prescriptions: Amoxicillin & Pot Clavulanate [Augmentin Tab] 875 mg PO BID 10 Days #20 tab RX: Azithromycin 250 mg PO DAILY 5 Days #6 tab Methocarbamol [Robaxin] 750 mg PO PRN PRN #20 tab PRN Reason: Pain Polyethylene Glycol 3350 [Miralax] 34 gm PO DAILY 20 Days #20 pckt Home Medications: Ambulatory Orders Atorvastatin Calcium [Lipitor] 10 mg PO DAILY 07/09/18 Citalopram Hydrobromide [Citalopram] 20 mg PO DAILY 07/09/18 Gabapentin 600 mg PO TID 07/09/18 Acetaminophen W/ Codeine [Tylenol W/ CODEINE #3] 1 ea PO Q6H #15 08/15/18 Dicyclomine HCl [Bentyl] 20 mg PO Q6HR PRN #20 tab 11/30/18 Docusate Sodium [Colace Cap] 100 mg PO BID #20 cap 11/30/18 Polyethylene Glycol 3350 [Miralax] 17 gm PO DAILY 20 Days #20 pckt 11/30/18 Amoxicillin & Pot Clavulanate [Augmentin Tab] 875 mg PO BID 10 Days #20 tab 12/18/18 Buspirone HCl [Buspirone Hydrochloride] 10 mg PO 12/18/18 Ferrous Sulfate [Fe Tabs] 325 mg PO 12/18/18 Insulin Aspart [Novolog Flexpen] 12/18/18 Insulin Detemir [Levemir] 0 unit SUBCU 12/18/18 Lactulose (Encephalopathy) [Lactulose] 10 gm PO 12/18/18 Levalbuterol Nebs [Xopenex NEBS] 1.25 mg NEB 12/18/18 Methocarbamol [Robaxin] 750 mg PO PRN PRN #20 tab 12/18/18 Multiple Vitamin [Multi-Vitamin] 1 tab PO 12/18/18 Nicotine Patch 21 mg [Habitrol Patch 21mg] 21 mg TOP 12/18/18 Nystatin-Triamcin Cream [Mycolog II Cream] 15 gm TOP 12/18/18 Pantoprazole Tablet [Protonix] 40 mg PO ACBK 12/18/18 Polyethylene Glycol 3350 [Miralax] 34 gm PO DAILY 20 Days #20 pckt 12/18/18 Pregabalin [Lyrica] 50 mg PO 12/18/18 RX: Azithromycin 250 mg PO DAILY 5 Days #6 tab 12/18/18 RX: Melatonin 10 mg PO 12/18/18 RX: Quetiapine Fumarate 50 mg PO 12/18/18 Umeclidinium [place]aly [Incruse Ellipta] 12/18/18 raNITIdine HCL [Zantac] 150 mg PO 12/18/18 Acetaminophen W/ Codeine [Tylenol W/ CODEINE #3] 1 ea PO Q6HRS #12 12/27/18 Fluconazole [Diflucan Tab] 100 mg PO DAILY #2 tab 01/01/19 Fluconazole [Diflucan Tab] 100 mg PO DAILY #2 tab 01/01/19 Nitrofurantoin Monohydrate Mac [Macrobid] 100 mg PO BID #10 capsule 01/01/19 Nitrofurantoin Monohydrate Mac [Macrobid] 100 mg PO BID #10 capsule 01/01/19 Addendum entered and electronically signed by Ermias Dinero MD 12/18/18 08:18: Departure - Departure Clinical Impression: Lower abdominal pain Pneumonia Qualifiers: Pneumonia type: due to unspecified organism Laterality: right Lung location: lower lobe of lung Qualified Code(s): J18.1 - Lobar pneumonia, unspecified organism Disposition: Discharge to Home or Self Care Condition: Good Departure Forms: ED Discharge - Pt. Copy, Patient Portal Self Enrollment Instructions: DI for Abdominal Pain-Adult Referrals: Ramon Torres MD [Primary Care Provider] - 1-2 Weeks Prescriptions: Amoxicillin & Pot Clavulanate [Augmentin Tab] 875 mg PO BID 10 Days #20 tab Azithromycin 250 mg PO DAILY 5 Days #6 tab Polyethylene Glycol 3350 [Miralax] 34 gm PO DAILY 20 Days #20 pckt Home Medications: Ambulatory Orders Atorvastatin Calcium [Lipitor] 10 mg PO DAILY 07/09/18 Citalopram Hydrobromide [Citalopram] 20 mg PO DAILY 07/09/18 Gabapentin 600 mg PO TID 07/09/18 Acetaminophen W/ Codeine [Tylenol W/ CODEINE #3] 1 ea PO Q6H #15 08/15/18 Dicyclomine HCl [Bentyl] 20 mg PO Q6HR PRN #20 tab 11/30/18 Docusate Sodium [Colace Cap] 100 mg PO BID #20 cap 11/30/18 Polyethylene Glycol 3350 [Miralax] 17 gm PO DAILY 20 Days #20 pckt 11/30/18 Amoxicillin & Pot Clavulanate [Augmentin Tab] 875 mg PO BID 10 Days #20 tab 12/18/18 Azithromycin 250 mg PO DAILY 5 Days #6 tab 12/18/18 Buspirone HCl [Buspirone Hydrochloride] 10 mg PO 12/18/18 Ferrous Sulfate [Fe Tabs] 325 mg PO 12/18/18 Insulin Aspart [Novolog Flexpen] 12/18/18 Insulin Detemir [Levemir] 0 unit SUBCU 12/18/18 Lactulose (Encephalopathy) [Lactulose] 10 gm PO 12/18/18 Levalbuterol Nebs [Xopenex NEBS] 1.25 mg NEB 12/18/18 Melatonin 10 mg PO 12/18/18 Multiple Vitamin [Multi-Vitamin] 1 tab PO 12/18/18 Nicotine Patch 21 mg [Habitrol Patch 21mg] 21 mg TOP 12/18/18 Nystatin-Triamcin Cream [Mycolog II Cream] 15 gm TOP 12/18/18 Pantoprazole Tablet [Protonix] 40 mg PO ACBK 12/18/18 Polyethylene Glycol 3350 [Miralax] 34 gm PO DAILY 20 Days #20 pckt 12/18/18 Pregabalin [Lyrica] 50 mg PO 12/18/18 Quetiapine Fumarate 50 mg PO 12/18/18 Umeclidinium [place]aly [Incruse Ellipta] 12/18/18 raNITIdine HCL [Zantac] 150 mg PO 12/18/18
[2018-12-18] MEDS ORDERED: ACETAMINOPHEN W/COD #3 TAB 1 EA TAB PO ONE (07:29)
--- NOTE | 2018-12-18 07:37 | CT ---
EXAM DESCRIPTION: CT abdomen and pelvis without contrast CLINICAL HISTORY: Left lower quadrant abdomen pain. Left flank pain COMPARISON: 11/30/2018 TECHNIQUE: Spiral CT with multiplanar reformatted images. This exam was performed according to our departmental dose-optimization program, which includes automated exposure control, adjustment of the mA and/or kV according to patient size and/or use of iterative reconstruction technique. FINDINGS: No renal, ureteral, or bladder calculus. Law catheter in the urinary bladder Large volume of stool in the redundant large intestine. No mass lesion or focal inflammatory process No mass lesion or inflammatory process in the stomach or small intestine. No mass lesion or adenopathy in the omentum, mesentery or retroperitoneum No mass lesion in the liver, spleen, pancreas or adrenal glands Multilevel degenerative change in the spine. Lumbar spine fusion surgery. Reticulonodular infiltrate in the right lower lobe has developed since the previous study. A couple small foci of subsegmental atelectasis. No pulmonary edema. Heart size normal. Coronary artery calcifications IMPRESSION: Interval development of right lower lobe reticulonodular infiltrate/pneumonia Constipation Electronically signed by: Billy Stephenson MD 12/18/2018 7:35 AM CDT
[2018-12-18 08:29] VITALS: O2SAT 96
[2018-12-18 08:36] VITALS: BP 111/78; TEMP 98.3
== END 2018-12-18 09:14 | disposition home or self-care (01) ==
LOC: ER 05:12
DX: J18.1 Lobar pneumonia, unspecified organism (principal); R10.32 Left lower quadrant pain; R11.0 Nausea; F32.9 Major depressive disorder, single episode, unspecified; I51.9 Heart disease, unspecified; E11.9 Type 2 diabetes mellitus without complications; K21.9 Gastro-esophageal reflux disease without esophagitis; Z87.891 Personal history of nicotine dependence; Z79.01 Long term (current) use of anticoagulants; Z86.711 Personal history of pulmonary embolism
CPT/HCPCS: 36415; 74176; 80053; 81001; 83690; 85025; 87086; J2270; J2405

== ENCOUNTER 2018-12-27 12:10 | Emergency (ER) | payer MEDICARE, MEDICAID ==
[2018-12-27] MEDS ORDERED: SODIUM CHLORIDE 0.9% 1000ML 1,000 ML IVS PRN (12:47)
[2018-12-27] MEDS ORDERED: HYDROmorphone HCL INJ 2 MG/ML VIAL IV ONE ×2 (12:47→14:36)
[2018-12-27] MEDS ORDERED: SODIUM CHLORIDE 0.9% (FLUSH) 10 ML SYG IV PRN (12:47)
[2018-12-27] MEDS ORDERED: ONDANSETRON INJ 4 MG/2 ML VIAL IV ONE (12:47)
--- NOTE | 2018-12-27 13:26 | ED.PDOC ---
History of Present Illness - General Chief Complaint: Back Pain or Injury Stated Complaint: bilateral flank pain Time Seen by Provider: 12/27/18 12:36 Source: patient, RN notes reviewed, Vital Signs reviewed, old records Exam Limitations: no limitations - History of Present Illness Initial Comments: patient is a 48-year-old white female who appears much older than her stated age who presents with complaints of bilateral flank pain and chills. This started early this morning. It is constant. Worse with movement. His only improved when she sits very still and upright. The pain is centered over bilateral flanks. It is stabbing and cramping in nature. It is moderate in nature. Patient denies any nausea, vomiting, diarrhea. Patient has just finished IV vancomycin for presumed osteomyelitis and a few weeks of by mouth vancomycin for C. difficile. Additionally patient just had a Law catheter, that has been indwelling for months, removed yesterday. patient denies fever. All other review of systems are negative. Timing/Duration: 4-6 hours Severity: moderate Improving Factors: immobilization Worsening Factors: movement Associated Symptoms: fever/chills, malaise Allergies/Adverse Reactions: Allergies NO KNOWN ALLERGY Allergy (Verified 11/30/18 09:32) Home Medications: Ambulatory Orders Atorvastatin Calcium [Lipitor] 10 mg PO DAILY 07/09/18 Citalopram Hydrobromide [Citalopram] 20 mg PO DAILY 07/09/18 Gabapentin 600 mg PO TID 07/09/18 Acetaminophen W/ Codeine [Tylenol W/ CODEINE #3] 1 ea PO Q6H #15 08/15/18 Dicyclomine HCl [Bentyl] 20 mg PO Q6HR PRN #20 tab 11/30/18 Docusate Sodium [Colace Cap] 100 mg PO BID #20 cap 11/30/18 Polyethylene Glycol 3350 [Miralax] 17 gm PO DAILY 20 Days #20 pckt 11/30/18 Amoxicillin & Pot Clavulanate [Augmentin Tab] 875 mg PO BID 10 Days #20 tab 12/18/18 Azithromycin 250 mg PO DAILY 5 Days #6 tab 12/18/18 Buspirone HCl [Buspirone Hydrochloride] 10 mg PO 12/18/18 Ferrous Sulfate [Fe Tabs] 325 mg PO 12/18/18 Insulin Aspart [Novolog Flexpen] 12/18/18 Insulin Detemir [Levemir] 0 unit SUBCU 12/18/18 Lactulose (Encephalopathy) [Lactulose] 10 gm PO 12/18/18 Levalbuterol Nebs [Xopenex NEBS] 1.25 mg NEB 12/18/18 Melatonin 10 mg PO 12/18/18 Methocarbamol [Robaxin] 750 mg PO PRN PRN #20 tab 12/18/18 Multiple Vitamin [Multi-Vitamin] 1 tab PO 12/18/18 Nicotine Patch 21 mg [Habitrol Patch 21mg] 21 mg TOP 12/18/18 Nystatin-Triamcin Cream [Mycolog II Cream] 15 gm TOP 12/18/18 Pantoprazole Tablet [Protonix] 40 mg PO ACBK 12/18/18 Polyethylene Glycol 3350 [Miralax] 34 gm PO DAILY 20 Days #20 pckt 12/18/18 Pregabalin [Lyrica] 50 mg PO 12/18/18 Quetiapine Fumarate 50 mg PO 12/18/18 Umeclidinium [place] [Incruse Ellipta] 12/18/18 raNITIdine HCL [Zantac] 150 mg PO 12/18/18 Acetaminophen W/ Codeine [Tylenol W/ CODEINE #3] 1 ea PO Q6HRS #12 12/27/18 Review of Systems - Review of Systems Constitutional: States: chills, weakness. Denies: fever EENTM: States: no symptoms reported Respiratory: States: no symptoms reported Cardiology: States: no symptoms reported Gastrointestinal/Abdominal: States: see HPI. Denies: diarrhea Genitourinary: States: no symptoms reported, see HPI Musculoskeletal: States: see HPI, back pain Skin: States: no symptoms reported Neurological: States: no symptoms reported, see HPI All other Systems: Reviewed and Negative Past Medical History (General) - Patient Medical History Hx Seizures: No Hx Stroke: No Hx Dementia: No Hx Asthma: No Hx of COPD: No Hx Cardiac Disorders: Yes Hx Congestive Heart Failure: No Hx Pacemaker: No Hx Hypertension: No Hx Thyroid Disease: No Hx Diabetes: Yes Hx Gastroesophageal Reflux: Yes - and constipation Hx Renal Disease: No Hx Cancer: No Hx of HIV: No Hx Hepatitis C: No Hx MRSA: Yes - Head,Finger 2008, Head 2009, Urine 2010, Face 2011 MRSA Source:: Wound Surgical History: no surgical history - Vaccination History Hx Tetanus, Diphtheria Vaccination: Yes Hx Influenza Vaccination: Yes Hx Pneumococcal Vaccination: No - Social History Hx Tobacco Use: Yes Hx Chewing Tobacco Use: No Hx Alcohol Use: No Hx Substance Use: Yes Hx Substance Use Treatment: Yes Hx Depression: Yes Hx Physical Abuse: No Hx Emotional Abuse: No Hx Suspected Abuse: No - Female History Patient : No Family Medical History - Family History Mother Family History: Unknown Living Status: Still Living Hx Family Diabetes: Yes - mom Physical Exam - Physical Exam General Appearance: Alert, Anxious, Well Groomed, Well Hydrated, Well Nourished Eye Exam: bilateral normal Ears, Nose, Throat: hearing grossly normal, normal ENT inspection, normal pharynx Neck: non-tender, full range of motion, supple, normal inspection Respiratory: chest non-tender, lungs clear, normal breath sounds, no respiratory distress, no accessory muscle use Cardiovascular/Chest: normal peripheral pulses, regular rate, rhythm, no edema, no gallop Peripheral Pulses: radial,right: 2+, radial,left: 2+ Gastrointestinal/Abdominal: normal bowel sounds, non tender, soft Back Exam: CVA tenderness (R), CVA tenderness (L) Extremity: normal range of motion, non-tender, normal inspection, no pedal edema, no calf tenderness, normal capillary refill Neurologic: legal 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 CT scan is relatively unremarkable except for constipation and a right lower lobe nodular opacity that is improving. Patient states that she previously had pneumonia over there was treated for when she was in the hospital. Off. 4 I think pneumonia is her source of pain is less likely. Her urinalysis does not show any bacteria. CT scan does not show any stranding around the kidneys and therefore I doubt pyelonephritis. I suspect the pain is secondary to musculoskeletal sprain/strain. Treatment with Ultram. We will only utilize a short course so as to not exacerbate her constipation excessively. I discussed the plan of care with the patient. She voices understanding and agreement. Plan discharge back to the [facility] this time. - Results/Orders Results/Orders: 12/27/18 12:47 IV Care:Saline Lock per Protoc QSHIFT Sodium Chloride 0.9% (Flush) [Saline Flush Syringe] 10 ml IV PRN PRN Sodium Chloride 0.9% 1000ML [Ns 1000 ml] 1,000 ml IVS .ONCE Laboratory Results - last 24 hr 12/27/18 12/27/18 12/27/18 12:45 12:45 13:29 WBC 7.2 RBC 4.29 Hgb 12.2 Hct 36.5 MCV 85.2 MCH 28.4 MCHC 33.4 RDW 15.4 H Plt Count 266 MPV 7.7 Absolute Neuts (auto) 4.90 Absolute Lymphs (auto) 1.70 Absolute Monos (auto) 0.30 Absolute Eos (auto) 0.20 Absolute Basos (auto) 0.00 Neutrophils % 68.0 Lymphocytes % 23.5 Monocytes % 4.4 Eosinophils % 3.4 Basophils % 0.7 Sodium 133 L Potassium 4.7 Chloride 94 L Carbon Dioxide 28 Anion Gap 15.7 BUN 20 H Creatinine 0.61 BUN/Creatinine Ratio 32.8 H Random Glucose 342 H Serum Osmolality 282.5 Calcium 9.9 Urine Color Yellow Urine Appearance Sl cloudy Urine pH 6.5 Ur Specific [place] 1.015 Urine Protein Negative Urine Glucose (UA) 100 H Urine Ketones Negative Urine Blood Trace-intact H Urine Nitrite Negative Urine Bilirubin Negative Urine Urobilinogen 0.2 Ur Leukocyte Esterase Negative Urine RBC 0-1 Urine WBC 0 Ur Epithelial Cells 0 Urine Bacteria Rare EXAM DESCRIPTION: Abdoment/Pelvis w/o Contrast CLINICAL HISTORY: 48 years Female, Bilateral flank pain COMPARISON: CT abdomen and pelvis 12/18/2018. TECHNIQUE: CT of the abdomen and pelvis acquired with IV contrast material. Coronal and sagittal reformations provided. This exam was performed according to our departmental dose-optimization program, which includes automated exposure control, adjustment of the mA and/or kV according to patient size and/or use of iterative reconstruction technique. FINDINGS: Lung bases: Mild reticular nodular opacities in the posterior right lower lung, mildly improved from 12/18/2018. Left lung bases clear. Limited evaluation of the solid organs secondary to the lack of intravenous contrast. Solid Organs: Surgically absent gallbladder. No biliary duct dilatation. Unremarkable liver, spleen, pancreas, and adrenal glands. No renal or ureteral stones. No hydronephroureter. GI tract: Unremarkable stomach. No small bowel obstruction. Large amount stool throughout the colon. Appendix is not identified. No pericecal inflammation. Vascular: Mild atherosclerosis. Musculoskeletal and soft tissues: No acute fracture or aggressive appearing osseous lesion. Mild body wall edema. Urinary bladder: Severely distended. Uterus and adnexa: Uterus is absent. Other: None. IMPRESSION: 1. Improved but residual mild reticular nodular opacities in the right lower lobe which may represent atypical infection. 2. Large amount stool t hroughout the colon which can be seen with constipation. Electronically signed by: Rafael Horton MD 12/27/2018 1:37 PM CDT Departure - Departure Clinical Impression: Back pain Qualifiers: Back pain location: low back pain Chronicity: acute Back pain laterality: bilateral Sciatica presence: without sciatica Qualified Code(s): M54.5 - Low back pain Constipation Qualifiers: Constipation type: unspecified constipation type Qualified Code(s): K59.00 - Constipation, unspecified Time of Disposition: 14:53 Disposition: Discharge to Home or Self Care Condition: Good Departure Forms: ED Discharge - Pt. Copy, Patient Portal Self Enrollment Instructions: DI for Low Back Pain, Constipation, Adult (DC) Referrals: Ramon Torres MD [Primary Care Provider] - 1-2 Weeks Prescriptions: Acetaminophen W/ Codeine [Tylenol W/ CODEINE #3] 1 ea PO Q6HRS #12 Home Medications: Ambulatory Orders Atorvastatin Calcium [Lipitor] 10 mg PO DAILY 07/09/18 Citalopram Hydrobromide [Citalopram] 20 mg PO DAILY 07/09/18 Gabapentin 600 mg PO TID 07/09/18 Acetaminophen W/ Codeine [Tylenol W/ CODEINE #3] 1 ea PO Q6H #15 08/15/18 Dicyclomine HCl [Bentyl] 20 mg PO Q6HR PRN #20 tab 11/30/18 Docusate Sodium [Colace Cap] 100 mg PO BID #20 cap 11/30/18 Polyethylene Glycol 3350 [Miralax] 17 gm PO DAILY 20 Days #20 pckt 11/30/18 Amoxicillin & Pot Clavulanate [Augmentin Tab] 875 mg PO BID 10 Days #20 tab 12/18/18 Azithromycin 250 mg PO DAILY 5 Days #6 tab 12/18/18 Buspirone HCl [Buspirone Hydrochloride] 10 mg PO 12/18/18 Ferrous Sulfate [Fe Tabs] 325 mg PO 12/18/18 Insulin Aspart [Novolog Flexpen] 12/18/18 Insulin Detemir [Levemir] 0 unit SUBCU 12/18/18 Lactulose (Encephalopathy) [Lactulose] 10 gm PO 12/18/18 Levalbuterol Nebs [Xopenex NEBS] 1.25 mg NEB 12/18/18 Melatonin 10 mg PO 12/18/18 Methocarbamol [Robaxin] 750 mg PO PRN PRN #20 tab 12/18/18 Multiple Vitamin [Multi-Vitamin] 1 tab PO 12/18/18 Nicotine Patch 21 mg [Habitrol Patch 21mg] 21 mg TOP 12/18/18 Nystatin-Triamcin Cream [Mycolog II Cream] 15 gm TOP 12/18/18 Pantoprazole Tablet [Protonix] 40 mg PO ACBK 12/18/18 Polyethylene Glycol 3350 [Miralax] 34 gm PO DAILY 20 Days #20 pckt 12/18/18 Pregabalin [Lyrica] 50 mg PO 12/18/18 Quetiapine Fumarate 50 mg PO 12/18/18 Umeclidinium [place] [Incruse Ellipta] 12/18/18 raNITIdine HCL [Zantac] 150 mg PO 12/18/18 Acetaminophen W/ Codeine [Tylenol W/ CODEINE #3] 1 ea PO Q6HRS #12 12/27/18
--- NOTE | 2018-12-27 13:39 | CT ---
EXAM DESCRIPTION: Abdoment/Pelvis w/o Contrast CLINICAL HISTORY: 48 years Female, Bilateral flank pain COMPARISON: CT abdomen and pelvis 12/18/2018. TECHNIQUE: CT of the abdomen and pelvis acquired with IV contrast material. Coronal and sagittal reformations provided. This exam was performed according to our departmental dose-optimization program, which includes automated exposure control, adjustment of the mA and/or kV according to patient size and/or use of iterative reconstruction technique. FINDINGS: Lung bases: Mild reticular nodular opacities in the posterior right lower lung, mildly improved from 12/18/2018. Left lung bases clear. Limited evaluation of the solid organs secondary to the lack of intravenous contrast. Solid Organs: Surgically absent gallbladder. No biliary duct dilatation. Unremarkable liver, spleen, pancreas, and adrenal glands. No renal or ureteral stones. No hydronephroureter. GI tract: Unremarkable stomach. No small bowel obstruction. Large amount stool throughout the colon. Appendix is not identified. No pericecal inflammation. Vascular: Mild atherosclerosis. Musculoskeletal and soft tissues: No acute fracture or aggressive appearing osseous lesion. Mild body wall edema. Urinary bladder: Severely distended. Uterus and adnexa: Uterus is absent. Other: None. IMPRESSION: 1. Improved but residual mild reticular nodular opacities in the right lower lobe which may represent atypical infection. 2. Large amount stool throughout the colon which can be seen with constipation. Electronically signed by: Rafael Horton MD 12/27/2018 1:37 PM CDT
[2018-12-27 14:52] VITALS: TEMP 97.8; O2SAT 96
[2018-12-27 18:23] VITALS: BP 126/95
== END 2018-12-27 16:50 | disposition home or self-care (01) ==
LOC: ER 12:10
DX: M54.5 Low back pain (principal); K59.00 Constipation, unspecified; R10.9 Unspecified abdominal pain; I51.9 Heart disease, unspecified; E11.9 Type 2 diabetes mellitus without complications; K21.9 Gastro-esophageal reflux disease without esophagitis; F32.9 Major depressive disorder, single episode, unspecified; Z87.891 Personal history of nicotine dependence; Z79.899 Other long term (current) drug therapy; Z79.4 Long term (current) use of insulin
CPT/HCPCS: 36415; 74176; 80048; 81001; 85025; J1170; J2405; J7030

== ENCOUNTER 2019-01-01 10:35 | Emergency (ER) | payer MEDICARE, MEDICAID ==
[2019-01-01 10:56] VITALS: O2SAT 100
[2019-01-01] MEDS ORDERED: FLUCONAZOLE 100 MG TAB PO ONE (11:16)
[2019-01-01] MEDS ORDERED: NITROFURANTOIN MONOHYDRATE MAC 100 MG CAP PO ONE (11:17)
--- NOTE | 2019-01-01 11:18 | RAD ---
EXAM DESCRIPTION: Abdomen Series CLINICAL HISTORY: 48 years Female, left sided abd pain COMPARISON: None. FINDINGS: The cardiomediastinal silhouette is unremarkable. Subsegmental atelectasis or scarring in the left upper lung. No airspace consolidation or pleural effusion. No free subdiaphragmatic gas or intra-abdominal air-fluid level. Postoperative changes in the right upper and lower quadrants. Postoperative changes in the lumbar spine. Moderate amount of colonic stool and gas, no dilated small bowel loops. No suspicious intra-abdominal calcification or mass. Degenerative disc disease at L2-3. IMPRESSION: Moderate amount of colonic stool and gas without obstruction, pneumoperitoneum or other acute intra-abdominal abnormality. Electronically signed by: Chuck Gilmore MD 01/01/2019 11:17 AM CDT
--- NOTE | 2019-01-01 11:25 | ED.PDOC ---
History of Present Illness - General Chief Complaint: Abdominal Pain Time Seen by Provider: 01/01/19 10:36 Source: patient Exam Limitations: no limitations - History of Present Illness Initial Comments: the patient is a 48-year-old female presenting to the emergency room secondary to left-sided abdominal pain last week. This has been a frequent recurrent problem for the patient over the last several months. She has had multiple episodes of constipation and does take pain medications which makes it worse. Additionally she does have some ambulatory limitations which also makes the problem worse. She has been taking some small doses of lactulose and MiraLAX to help. Pain is to the left lower as well asleft mid and lateral abdomen. It is worse with palpation. There is a large amount of palpable stool present. She did recently undergo treatment for C. difficile. She has not been having any diarrhea. No real urinary symptoms. Timing/Duration: 1 week, other - recurrent Severity: moderate Improving Factors: nothing Worsening Factors: movement Associated Symptoms: loss of appetite Allergies/Adverse Reactions: Allergies NO KNOWN ALLERGY Allergy (Verified 11/30/18 09:32) Home Medications: Ambulatory Orders Atorvastatin Calcium [Lipitor] 10 mg PO DAILY 07/09/18 Citalopram Hydrobromide [Citalopram] 20 mg PO DAILY 07/09/18 Gabapentin 600 mg PO TID 07/09/18 Acetaminophen W/ Codeine [Tylenol W/ CODEINE #3] 1 ea PO Q6H #15 08/15/18 Dicyclomine HCl [Bentyl] 20 mg PO Q6HR PRN #20 tab 11/30/18 Docusate Sodium [Colace Cap] 100 mg PO BID #20 cap 11/30/18 Polyethylene Glycol 3350 [Miralax] 17 gm PO DAILY 20 Days #20 pckt 11/30/18 Amoxicillin & Pot Clavulanate [Augmentin Tab] 875 mg PO BID 10 Days #20 tab 12/18/18 Azithromycin 250 mg PO DAILY 5 Days #6 tab 12/18/18 Buspirone HCl [Buspirone Hydrochloride] 10 mg PO 12/18/18 Ferrous Sulfate [Fe Tabs] 325 mg PO 12/18/18 Insulin Aspart [Novolog Flexpen] 12/18/18 Insulin Detemir [Levemir] 0 unit SUBCU 12/18/18 Lactulose (Encephalopathy) [Lactulose] 10 gm PO 12/18/18 Levalbuterol Nebs [Xopenex NEBS] 1.25 mg NEB 12/18/18 Melatonin 10 mg PO 12/18/18 Methocarbamol [Robaxin] 750 mg PO PRN PRN #20 tab 12/18/18 Multiple Vitamin [Multi-Vitamin] 1 tab PO 12/18/18 Nicotine Patch 21 mg [Habitrol Patch 21mg] 21 mg TOP 12/18/18 Nystatin-Triamcin Cream [Mycolog II Cream] 15 gm TOP 12/18/18 Pantoprazole Tablet [Protonix] 40 mg PO ACBK 12/18/18 Polyethylene Glycol 3350 [Miralax] 34 gm PO DAILY 20 Days #20 pckt 12/18/18 Pregabalin [Lyrica] 50 mg PO 12/18/18 Quetiapine Fumarate 50 mg PO 12/18/18 Umeclidinium [place] [Incruse Ellipta] 12/18/18 raNITIdine HCL [Zantac] 150 mg PO 12/18/18 Acetaminophen W/ Codeine [Tylenol W/ CODEINE #3] 1 ea PO Q6HRS #12 12/27/18 Fluconazole [Diflucan Tab] 100 mg PO DAILY #2 tab 01/01/19 Nitrofurantoin Monohydrate Mac [Macrobid] 100 mg PO BID #10 capsule 01/01/19 Review of Systems - Review of Systems Constitutional: States: no symptoms reported EENTM: States: no symptoms reported Respiratory: States: no symptoms reported Cardiology: States: no symptoms reported Gastrointestinal/Abdominal: States: abdominal pain, constipation Genitourinary: States: no symptoms reported Musculoskeletal: States: no symptoms reported Skin: States: no symptoms reported Neurological: States: anxiety Endocrine: States: no symptoms reported All other Systems: No Change from Baseline Past Medical History (General) - Patient Medical History Hx Seizures: No Hx Stroke: No Hx Dementia: No Hx Asthma: No Hx of COPD: No Hx Cardiac Disorders: Yes Hx Congestive Heart Failure: No Hx Pacemaker: No Hx Hypertension: No Hx Thyroid Disease: No Hx Diabetes: Yes Hx Gastroesophageal Reflux: Yes - and constipation Hx Renal Disease: No Hx Cancer: No Hx of HIV: No Hx Hepatitis C: No Hx MRSA: Yes - Head,Finger 2008, Head 2009, Urine 2010, Face 2011 MRSA Source:: Wound - Vaccination History Hx Tetanus, Diphtheria Vaccination: Yes Hx Influenza Vaccination: Yes Hx Pneumococcal Vaccination: No - Social History Hx Tobacco Use: Yes Hx Chewing Tobacco Use: No Hx Alcohol Use: No Hx Substance Use: Yes Hx Substance Use Treatment: Yes Hx Depression: Yes Hx Physical Abuse: No Hx Emotional Abuse: No Hx Suspected Abuse: No - Female History Patient : No Family Medical History - Family History Mother Family History: Unknown Living Status: Still Living Hx Family Diabetes: Yes - mom Physical Exam - Physical Exam General Appearance: Alert, No apparent distress Eye Exam: bilateral normal Ears, Nose, Throat: hearing grossly normal, normal pharynx Neck: full range of motion, supple Respiratory: lungs clear, normal breath sounds, no respiratory distress, no accessory muscle use Cardiovascular/Chest: normal peripheral pulses, no edema, other - regular rate when the patient relaxes Peripheral Pulses: radial,right: 2+, radial,left: 2+ Gastrointestinal/Abdominal: other - large amount of palpable stool. Generalized discomfort to the left abdomen and flank. 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 The patient is going to be written for a gallon of Balloon to take today. She does need to get cleaned out and let her intestinal tract reset. This is likely made worse by her opiate pain medications. She may need to be on something along the lines of linzess or amitiza if she is going to continue to be on opiate medications. She needs to keep herself well-hydrated. She needs to increase the amount of fiber in her diet. Increase physical activity as much as tolerable. She does also appear to have a small yeast infection and urinary tract infection. She is going to be placed on 5 days of Macrobid and another 2 days of Diflucan. She did receive first doses of these here. Keep follow-up with primary care doctor within the next week. ER warnings are given for any worsening. - Results/Orders Results/Orders: Laboratory Tests 01/01/19 01/01/19 11:00 Unknown Urine Color Yellow Urine Appearance Sl cloudy Urine pH 6.0 Ur Specific [place] 1.015 Urine Protein Negative Urine Glucose (UA) 100 H Urine Ketones Negative Urine Blood Trace-intact H Urine Nitrite Negative Urine Bilirubin Negative Urine Urobilinogen 0.2 Ur Leukocyte Esterase Small H Urine RBC 5-10 H Urine WBC 10-20 H Ur Epithelial Cells 1-3 Urine Bacteria 2+ H Urine Mucus Trace Urine Yeast 3+ budding H Urine HCG, Qual Negative acute abdominal series shows a large amount of constipation. Departure - Departure Clinical Impression: Yeast UTI, Cystitis Constipation Qualifiers: Constipation type: drug induced constipation Qualified Code(s): K59.03 - Drug induced constipation Disposition: Discharge to Home or Self Care Condition: Fair Departure Forms: ED Discharge - Pt. Copy, Patient Portal Self Enrollment Instructions: Constipation in Adults, Yeast Infection (DC), Urinary Tract Infections in Adults Diet: other - High-fiber Activity: increase activity as tolerated Referrals: Ramon Torres MD [Primary Care Provider] - 1-2 Weeks Prescriptions: Fluconazole [Diflucan Tab] 100 mg PO DAILY #2 tab Nitrofurantoin Monohydrate Mac [Macrobid] 100 mg PO BID #10 capsule Home Medications: Ambulatory Orders Atorvastatin Calcium [Lipitor] 10 mg PO DAILY 07/09/18 Citalopram Hydrobromide [Citalopram] 20 mg PO DAILY 07/09/18 Gabapentin 600 mg PO TID 07/09/18 Acetaminophen W/ Codeine [Tylenol W/ CODEINE #3] 1 ea PO Q6H #15 08/15/18 Dicyclomine HCl [Bentyl] 20 mg PO Q6HR PRN #20 tab 11/30/18 Docusate Sodium [Colace Cap] 100 mg PO BID #20 cap 11/30/18 Polyethylene Glycol 3350 [Miralax] 17 gm PO DAILY 20 Days #20 pckt 11/30/18 Amoxicillin & Pot Clavulanate [Augmentin Tab] 875 mg PO BID 10 Days #20 tab 12/18/18 Azithromycin 250 mg PO DAILY 5 Days #6 tab 12/18/18 Buspirone HCl [Buspirone Hydrochloride] 10 mg PO 12/18/18 Ferrous Sulfate [Fe Tabs] 325 mg PO 12/18/18 Insulin Aspart [Novolog Flexpen] 12/18/18 Insulin Detemir [Levemir] 0 unit SUBCU 12/18/18 Lactulose (Encephalopathy) [Lactulose] 10 gm PO 12/18/18 Levalbuterol Nebs [Xopenex NEBS] 1.25 mg NEB 12/18/18 Melatonin 10 mg PO 12/18/18 Methocarbamol [Robaxin] 750 mg PO PRN PRN #20 tab 12/18/18 Multiple Vitamin [Multi-Vitamin] 1 tab PO 12/18/18 Nicotine Patch 21 mg [Habitrol Patch 21mg] 21 mg TOP 12/18/18 Nystatin-Triamcin Cream [Mycolog II Cream] 15 gm TOP 12/18/18 Pantoprazole Tablet [Protonix] 40 mg PO ACBK 12/18/18 Polyethylene Glycol 3350 [Miralax] 34 gm PO DAILY 20 Days #20 pckt 12/18/18 Pregabalin [Lyrica] 50 mg PO 12/18/18 Quetiapine Fumarate 50 mg PO 12/18/18 Umeclidinium [place] [Incruse Ellipta] 12/18/18 raNITIdine HCL [Zantac] 150 mg PO 12/18/18 Acetaminophen W/ Codeine [Tylenol W/ CODEINE #3] 1 ea PO Q6HRS #12 12/27/18 Fluconazole [Diflucan Tab] 100 mg PO DAILY #2 tab 01/01/19 Nitrofurantoin Monohydrate Mac [Macrobid] 100 mg PO BID #10 capsule 01/01/19 Additional Instructions: the patient is a 48-year-old female presenting secondary to recurrent abdominal pain that appears to most likely still be due to significant constipation. The patient is going to be written for a gallon of Go[place]ELY to take today. She does need to get cleaned out and let her intestinal tract reset. This is likely made worse by her opiate pain medications. She may need to be on something along the lines of linzess or amitiza if she is going to continue to be on opiate medications. She needs to keep herself well-hydrated. She needs to increase the amount of fiber in her diet. Increase physical activity as much as tolerable. She does also appear to have a small yeast infection and urinary tract infection. She is going to be placed on 5 days of Macrobid and another 2 days of Diflucan. She did receive first doses of these here. Keep follow-up with primary care doctor within the next week. ER warnings are given for any worsening. atorvastatin should be held while taking the antibiotics.
[2019-01-01] MEDS ORDERED: KETOROLAC TROMETHAMINE INJ 30 MG/ML VIAL IM ONE (11:32)
[2019-01-01 12:42] VITALS: BP 143/93; TEMP 97
== END 2019-01-01 12:10 | disposition home or self-care (01) ==
LOC: ER 10:35
DX: B37.41 Candidal cystitis and urethritis (principal); K59.03 Drug induced constipation; I51.9 Heart disease, unspecified; E11.9 Type 2 diabetes mellitus without complications; K21.9 Gastro-esophageal reflux disease without esophagitis; F32.9 Major depressive disorder, single episode, unspecified; Z87.891 Personal history of nicotine dependence; Z79.899 Other long term (current) drug therapy; Z79.4 Long term (current) use of insulin; Z79.891 Long term (current) use of opiate analgesic
CPT/HCPCS: 74019; 81001; 81025; 87086; J1885

== ENCOUNTER → 2019-01-16 | Outpatient (CLI) | payer MEDICARE, MEDICAID ==
--- NOTE | 2019-01-17 09:25 | RAD ---
EXAM DESCRIPTION: Chest,2 Views CLINICAL HISTORY: PLEURAL EFFUSION COMPARISON: Previous study May 27, 2008 TECHNIQUE: PA/lateral FINDINGS: Orthopedic hardware in the lower C-spine. Linear scarring in the left upper lobe versus discoid atelectasis. This is new compared to the previous study. Heart size is prominent with normal pulmonary vascularity. No pleural effusion or pneumothorax. Lungs are clear with no consolidating infiltrate. Lateral view shows intact sternum and T-spine. Small pleural effusion evident posteriorly on the lateral view thought to be on the left. IMPRESSION: Small left pleural effusion. Linear scarring or discoid atelectasis left upper lobe. Electronically signed by: Golden Stahl MD 01/17/2019 9:23 AM CDT
--- NOTE | 2019-01-17 11:54 | RAD ---
EXAM DESCRIPTION: Abdomen Flat Upright CLINICAL HISTORY: ABD PAIN COMPARISON: None. TECHNIQUE: AP supine and upright views the abdomen FINDINGS: Surgical clips are seen in the right upper quadrant. Pedicle screw and interbody fusion is observed at the L4-5 level. A large amount stool seen throughout the colon. No free air is detected. No air-fluid levels are observed. No organomegaly is seen. The lung bases are clear. Mild convexity lumbar spine to the left is observed. IMPRESSION: A large amount of stool is observed throughout the colon consistent with constipation. Electronically signed by: Yfn Cox MD 01/17/2019 11:52 AM CDT
== END ==
LOC: YCFC.O 17:03
PROVIDERS: ATTEND Family Medicine
DX: R10.9 Unspecified abdominal pain (principal); J90 Pleural effusion, not elsewhere classified; R91.8 Other nonspecific abnormal finding of lung field; R35.0 Frequency of micturition

== ENCOUNTER 2019-01-23 11:46 | Emergency (ER) | payer MEDICARE, MEDICAID ==
[2019-01-23] MEDS ORDERED: MORPHINE SULFATE INJ 10 MG/ML VIAL IV ONE ×2 (12:04→13:10)
[2019-01-23] MEDS ORDERED: ACETAMINOPHEN 500 MG TAB PO ONE (12:04)
[2019-01-23] MEDS ORDERED: ASPIRIN (CHEWABLE) 81 MG TAB PO ONE (12:04)
[2019-01-23] MEDS ORDERED: ONDANSETRON INJ 4 MG/2 ML VIAL IV ONE (12:04)
[2019-01-23] MEDS ORDERED: SODIUM CHLORIDE 0.9% 1000ML 1,000 ML IVS ONE (12:04)
--- NOTE | 2019-01-23 12:09 | ED.PDOC ---
History of Present Illness - General Chief Complaint: Problem Stated Complaint: abdominal/flank pain Time Seen by Provider: 01/23/19 12:01 - History of Present Illness Initial Comments: 48 yo F PMH DM Anxiety/Depression (denies hallucinations SI HI without suicide plan) presents to ED family member and [employer] [facility] employee at bedside c/o abdominal pain flank pain and nausea for 'months' Has PMD Dr. Torres for follow up. Admits fever chills nausea denies vomiting admits diarrhea no blood admits intermittent chest pain none currently admits sob denies diaphoresis. Symptoms disturn rest and appetite admits recent diagnosis of UTI admits past h/o smoking denies drinking admits FH DM denies FH HTN no other c/o today. Allergies/Adverse Reactions: Allergies NO KNOWN ALLERGY Allergy (Verified 11/30/18 09:32) Home Medications: Ambulatory Orders Atorvastatin Calcium [Lipitor] 10 mg PO DAILY 07/09/18 Citalopram Hydrobromide [Citalopram] 20 mg PO DAILY 07/09/18 Gabapentin 600 mg PO TID 07/09/18 Acetaminophen W/ Codeine [Tylenol W/ CODEINE #3] 1 ea PO Q6H #15 08/15/18 Dicyclomine HCl [Bentyl] 20 mg PO Q6HR PRN #20 tab 11/30/18 Docusate Sodium [Colace Cap] 100 mg PO BID #20 cap 11/30/18 Polyethylene Glycol 3350 [Miralax] 17 gm PO DAILY 20 Days #20 pckt 11/30/18 Amoxicillin & Pot Clavulanate [Augmentin Tab] 875 mg PO BID 10 Days #20 tab 12/18/18 Azithromycin 250 mg PO DAILY 5 Days #6 tab 12/18/18 Buspirone HCl [Buspirone Hydrochloride] 10 mg PO 12/18/18 Ferrous Sulfate [Fe Tabs] 325 mg PO 12/18/18 Insulin Aspart [Novolog Flexpen] 12/18/18 Insulin Detemir [Levemir] 0 unit SUBCU 12/18/18 Lactulose (Encephalopathy) [Lactulose] 10 gm PO 12/18/18 Levalbuterol Nebs [Xopenex NEBS] 1.25 mg NEB 12/18/18 Melatonin 10 mg PO 12/18/18 Methocarbamol [Robaxin] 750 mg PO PRN PRN #20 tab 12/18/18 Multiple Vitamin [Multi-Vitamin] 1 tab PO 12/18/18 Nicotine Patch 21 mg [Habitrol Patch 21mg] 21 mg TOP 12/18/18 Nystatin-Triamcin Cream [Mycolog II Cream] 15 gm TOP 12/18/18 Pantoprazole Tablet [Protonix] 40 mg PO ACBK 12/18/18 Polyethylene Glycol 3350 [Miralax] 34 gm PO DAILY 20 Days #20 pckt 12/18/18 Pregabalin [Lyrica] 50 mg PO 12/18/18 Quetiapine Fumarate 50 mg PO 12/18/18 Umeclidinium [place] [Incruse Ellipta] 12/18/18 raNITIdine HCL [Zantac] 150 mg PO 12/18/18 Acetaminophen W/ Codeine [Tylenol W/ CODEINE #3] 1 ea PO Q6HRS #12 12/27/18 Fluconazole [Diflucan Tab] 100 mg PO DAILY #2 tab 01/01/19 Fluconazole [Diflucan Tab] 100 mg PO DAILY #2 tab 01/01/19 Nitrofurantoin Monohydrate Mac [Macrobid] 100 mg PO BID #10 capsule 01/01/19 Nitrofurantoin Monohydrate Mac [Macrobid] 100 mg PO BID #10 capsule 01/01/19 Review of Systems - Review of Systems Constitutional: States: see HPI EENTM: States: see HPI Respiratory: States: see HPI Cardiology: States: see HPI Gastrointestinal/Abdominal: States: see HPI Genitourinary: States: see HPI Musculoskeletal: States: see HPI Skin: States: see HPI Neurological: States: see HPI Hematologic/Lymphatic: States: see HPI All other Systems: Reviewed and Negative Past Medical History (General) - Patient Medical History Hx Seizures: No Hx Stroke: No Hx Dementia: No Hx Asthma: No Hx of COPD: No Hx Cardiac Disorders: Yes Hx Congestive Heart Failure: No Hx Pacemaker: No Hx Hypertension: No Hx Thyroid Disease: No Hx Diabetes: Yes Hx Gastroesophageal Reflux: Yes - and constipation Hx Renal Disease: No Hx Cancer: No Hx of HIV: No Hx Hepatitis C: No Hx MRSA: Yes - Head,Finger 2008, Head 2009, Urine 2010, Face 2011 MRSA Source:: Wound Surgical History: appendectomy, cholecystectomy - Vaccination History Hx Tetanus, Diphtheria Vaccination: Yes Hx Influenza Vaccination: Yes Hx Pneumococcal Vaccination: No - Social History Hx Tobacco Use: Yes Hx Chewing Tobacco Use: No Hx Alcohol Use: No Hx Substance Use: Yes Hx Substance Use Treatment: Yes Hx Depression: Yes Hx Physical Abuse: No Hx Emotional Abuse: No Hx Suspected Abuse: No - Female History Patient : No Family Medical History - Family History Mother Family History: Unknown Living Status: Still Living Hx Family Diabetes: Yes - mom Physical Exam - Physical Exam General Appearance: Other - uncomfortable tearful Eye Exam: bilateral normal Ears, Nose, Throat: normal ENT inspection Neck: non-tender, full range of motion Respiratory: normal breath sounds Cardiovascular/Chest: regular rate, rhythm, tachycardia Gastrointestinal/Abdominal: soft, tenderness - diffuse tenderness Rectal Exam: deferred Back Exam: CVA tenderness (R), CVA tenderness (L) Extremity: normal range of motion, non-tender Neurologic: no motor/sensory deficits Skin Exam: normal color Progress - Progress Progress: 01/23/19 12:14 A/P-Chest Pain Abdominal Pain Flank Pain-iv bolus tylenol zofran morphine cbc cmp lipase lactate trop urinalysis upreg ct abdomen pelvis ekg cxr asa reassess 01/23/19 13:46 labs and imaging grossly unremarkable pt better after dilaudid will d/c home - Results/Orders Results/Orders: Laboratory Tests 01/23/19 01/23/19 01/23/19 12:27 12:27 12:27 WBC 6.4 RBC 4.53 Hgb 12.8 Hct 37.8 MCV 83.5 MCH 28.2 MCHC 33.8 RDW 15.0 H Plt Count 268 MPV 7.5 Absolute Neuts (auto) 4.40 Absolute Lymphs (auto) 1.40 Absolute Monos (auto) 0.40 Absolute Eos (auto) 0.10 Absolute Basos (auto) 0.00 Neutrophils % 68.8 Lymphocytes % 22.4 Monocytes % 5.9 Eosinophils % 2.1 Basophils % 0.8 Sodium 131 L Potassium 4.4 Chloride 97 L Carbon Dioxide 23 Anion Gap 15.4 BUN 12 Creatinine 0.62 BUN/Creatinine Ratio 19.4 Random Glucose 319 H Serum Osmolality 274.7 L Lactic Acid Calcium 9.5 Total Bilirubin 0.3 AST 12 ALT 16 Alkaline Phosphatase 63 Troponin I < 0.02 Serum Total Protein 8.7 H Albumin 3.6 Globulin 5.1 H Albumin/Globulin Ratio 0.7 L Lipase 24 01/23/19 12:27 WBC RBC Hgb Hct MCV MCH MCHC RDW Plt Count MPV Absolute Neuts (auto) Absolute Lymphs (auto) Absolute Monos (auto) Absolute Eos (auto) Absolute Basos (auto) Neutrophils % Lymphocytes % Monocytes % Eosinophils % Basophils % Sodium Potassium Chloride Carbon Dioxide Anion Gap BUN Creatinine BUN/Creatinine Ratio Random Glucose Serum Osmolality Lactic Acid 1.4 Calcium Total Bilirubin AST ALT Alkaline Phosphatase Troponin I Serum Total Protein Albumin Globulin Albumin/Globulin Ratio Lipase Study: Single Frontal Radiograph of the Chest. Indication:r/o pneumonia Comparison: January 16, 2019 Impression: Cardiomegaly without failure. Lungs clear. Lower cervical fusion construct noted. Electronically signed by: Samuel Samayoa MD 01/23/2019 1:02 PM CDT EXAM DESCRIPTION: Abdoment/Pelvis w/o Contrast CLINICAL HISTORY: 48 years Female, pain TECHNIQUE: This exam was performed according to our departmental dose-optimization program, which includes automated exposure control, adjustment of the mA and/or kV according to patient size and/or use of iterative reconstruction technique. COMPARISON: 12/27/2018 FINDINGS: Evaluation limited by lack of intravenous contrast. Bibasilar volume loss. No focal consolidation or suspicious pulmonary nodule. Cholecystectomy. Contours of the liver, spleen, pancreas and adrenal glands are unremarkable. Normal renal contours. No hydronephrosis or obstructing ureteral stone. The bladder is mildly distended. Large colonic stool volume. No evidence of bowel obstruction or focal inflammatory change. Normal caliber abdominal aorta. Mild atherosclerotic disease. No adenopathy. No focal fluid collection. No free air. Redemonstrated lumbar spinal hardware. L2/L3 advanced degenerative disc disease. Vacuum disc phenomenon excludes a more aggressive process. IMPRESSION: No evidence of acute process in the abdomen or pelvis. Electronically signed by: Petey Zhou MD 01/23/2019 1:05 PM CDT Laboratory Tests 01/23/19 01/23/19 01/23/19 12:27 12:27 12:27 WBC 6.4 RBC 4.53 Hgb 12.8 Hct 37.8 MCV 83.5 MCH 28.2 MCHC 33.8 RDW 15.0 H Plt Count 268 MPV 7.5 Absolute Neuts (auto) 4.40 Absolute Lymphs (auto) 1.40 Absolute Monos (auto) 0.40 Absolute Eos (auto) 0.10 Absolute Basos (auto) 0.00 Neutrophils % 68.8 Lymphocytes % 22.4 Monocytes % 5.9 Eosinophils % 2.1 Basophils % 0.8 Sodium 131 L Potassium 4.4 Chloride 97 L Carbon Dioxide 23 Anion Gap 15.4 BUN 12 Creatinine 0.62 BUN/Creatinine Ratio 19.4 Random Glucose 319 H Serum Osmolality 274.7 L Lactic Acid Calcium 9.5 Total Bilirubin 0.3 AST 12 ALT 16 Alkaline Phosphatase 63 Troponin I < 0.02 Serum Total Protein 8.7 H Albumin 3.6 Globulin 5.1 H Albumin/Globulin Ratio 0.7 L Lipase 24 Urine Color Urine Appearance Urine pH Ur Specific [place] Urine Protein Urine Glucose (UA) Urine Ketones Urine Blood Urine Nitrite Urine Bilirubin Urine Urobilinogen Ur Leukocyte Esterase Urine RBC Urine WBC Ur Epithelial Cells Urine Bacteria Urine Yeast Urine HCG, Qual 01/23/19 01/23/19 01/23/19 12:27 13:00 13:00 WBC RBC Hgb Hct MCV MCH MCHC RDW Plt Count MPV Absolute Neuts (auto) Absolute Lymphs (auto) Absolute Monos (auto) Absolute Eos (auto) Absolute Basos (auto) Neutrophils % Lymphocytes % Monocytes % Eosinophils % Basophils % Sodium Potassium Chloride Carbon Dioxide Anion Gap BUN Creatinine BUN/Creatinine Ratio Random Glucose Serum Osmolality Lactic Acid 1.4 Calcium Total Bilirubin AST ALT Alkaline Phosphatase Troponin I Serum Total Protein Albumin Globulin Albumin/Globulin Ratio Lipase Urine Color Yellow Urine Appearance Clear Urine pH 7.0 Ur Specific [place] 1.020 Urine Protein Negative Urine Glucose (UA) 250 H Urine Ketones Negative Urine Blood Trace-intact H Urine Nitrite Negative Urine Bilirubin Negative Urine Urobilinogen 0.2 Ur Leukocyte Esterase Negative Urine RBC 0-1 Urine WBC 0-1 Ur Epithelial Cells 0-1 Urine Bacteria 0 Urine Yeast Rare Urine HCG, Qual Negative Departure - Departure Clinical Impression: Flank pain Chest pain Qualifiers: Chest pain type: unspecified Qualified Code(s): R07.9 - Chest pain, unspecified Abdominal pain Qualifiers: Abdominal location: unspecified location Qualified Code(s): R10.9 - Unspecified abdominal pain Time of Disposition: 13:51 Disposition: Discharge to Home or Self Care Departure Forms: ED Discharge - Pt. Copy, Patient Portal Self Enrollment Instructions: DI for Urinary Tract Infection (UTI) Diet: resume usual diet Referrals: Ramon Torres MD [Primary Care Provider] - 1-2 Weeks Home Medications: Ambulatory Orders Atorvastatin Calcium [Lipitor] 10 mg PO DAILY 07/09/18 Citalopram Hydrobromide [Citalopram] 20 mg PO DAILY 07/09/18 Gabapentin 600 mg PO TID 07/09/18 Acetaminophen W/ Codeine [Tylenol W/ CODEINE #3] 1 ea PO Q6H #15 08/15/18 Dicyclomine HCl [Bentyl] 20 mg PO Q6HR PRN #20 tab 11/30/18 Docusate Sodium [Colace Cap] 100 mg PO BID #20 cap 11/30/18 Polyethylene Glycol 3350 [Miralax] 17 gm PO DAILY 20 Days #20 pckt 11/30/18 Amoxicillin & Pot Clavulanate [Augmentin Tab] 875 mg PO BID 10 Days #20 tab 12/18/18 Azithromycin 250 mg PO DAILY 5 Days #6 tab 12/18/18 Buspirone HCl [Buspirone Hydrochloride] 10 mg PO 12/18/18 Ferrous Sulfate [Fe Tabs] 325 mg PO 12/18/18 Insulin Aspart [Novolog Flexpen] 12/18/18 Insulin Detemir [Levemir] 0 unit SUBCU 12/18/18 Lactulose (Encephalopathy) [Lactulose] 10 gm PO 12/18/18 Levalbuterol Nebs [Xopenex NEBS] 1.25 mg NEB 12/18/18 Melatonin 10 mg PO 12/18/18 Methocarbamol [Robaxin] 750 mg PO PRN PRN #20 tab 12/18/18 Multiple Vitamin [Multi-Vitamin] 1 tab PO 12/18/18 Nicotine Patch 21 mg [Habitrol Patch 21mg] 21 mg TOP 12/18/18 Nystatin-Triamcin Cream [Mycolog II Cream] 15 gm TOP 12/18/18 Pantoprazole Tablet [Protonix] 40 mg PO ACBK 12/18/18 Polyethylene Glycol 3350 [Miralax] 34 gm PO DAILY 20 Days #20 pckt 12/18/18 Pregabalin [Lyrica] 50 mg PO 12/18/18 Quetiapine Fumarate 50 mg PO 12/18/18 Umeclidinium [place] [Incruse Ellipta] 12/18/18 raNITIdine HCL [Zantac] 150 mg PO 12/18/18 Acetaminophen W/ Codeine [Tylenol W/ CODEINE #3] 1 ea PO Q6HRS #12 12/27/18 Fluconazole [Diflucan Tab] 100 mg PO DAILY #2 tab 01/01/19 Fluconazole [Diflucan Tab] 100 mg PO DAILY #2 tab 01/01/19 Nitrofurantoin Monohydrate Mac [Macrobid] 100 mg PO BID #10 capsule 01/01/19 Nitrofurantoin Monohydrate Mac [Macrobid] 100 mg PO BID #10 capsule 01/01/19
--- NOTE | 2019-01-23 13:04 | RAD ---
Study: Single Frontal Radiograph of the Chest. Indication:r/o pneumonia Comparison: January 16, 2019 Impression: Cardiomegaly without failure. Lungs clear. Lower cervical fusion construct noted. Electronically signed by: Samuel Samayoa MD 01/23/2019 1:02 PM CDT
--- NOTE | 2019-01-23 13:06 | CT ---
EXAM DESCRIPTION: Abdoment/Pelvis w/o Contrast CLINICAL HISTORY: 48 years Female, pain TECHNIQUE: This exam was performed according to our departmental dose-optimization program, which includes automated exposure control, adjustment of the mA and/or kV according to patient size and/or use of iterative reconstruction technique. COMPARISON: 12/27/2018 FINDINGS: Evaluation limited by lack of intravenous contrast. Bibasilar volume loss. No focal consolidation or suspicious pulmonary nodule. Cholecystectomy. Contours of the liver, spleen, pancreas and adrenal glands are unremarkable. Normal renal contours. No hydronephrosis or obstructing ureteral stone. The bladder is mildly distended. Large colonic stool volume. No evidence of bowel obstruction or focal inflammatory change. Normal caliber abdominal aorta. Mild atherosclerotic disease. No adenopathy. No focal fluid collection. No free air. Redemonstrated lumbar spinal hardware. L2/L3 advanced degenerative disc disease. Vacuum disc phenomenon excludes a more aggressive process. IMPRESSION: No evidence of acute process in the abdomen or pelvis. Electronically signed by: Petey Zhou MD 01/23/2019 1:05 PM CDT
[2019-01-23] MEDS ORDERED: HYDROmorphone HCL INJ 2 MG/ML VIAL IV ONE (13:23)
[2019-01-23 14:49] VITALS: BP 105/71; TEMP 96.3; O2SAT 95
== END 2019-01-23 14:48 | disposition home or self-care (01) ==
LOC: ER 11:46
DX: R10.9 Unspecified abdominal pain (principal); R07.9 Chest pain, unspecified; E11.9 Type 2 diabetes mellitus without complications; K21.9 Gastro-esophageal reflux disease without esophagitis; I51.7 Cardiomegaly; Z86.14 Personal history of Methicillin resistant Staphylococcus aureus infection; Z87.891 Personal history of nicotine dependence; Z79.4 Long term (current) use of insulin; Z79.899 Other long term (current) drug therapy
CPT/HCPCS: 36415; 71045; 74176; 80053; 81001; 81025; 83605; 83690; 84484; 85025; 87086; 93005; J1170; J2270; J2405; J7030

== ENCOUNTER 2019-01-26 14:55 | Emergency (ER) | payer MEDICARE, MEDICAID ==
[2019-01-26 15:09] VITALS: TEMP 97.3; O2SAT 99
[2019-01-26] MEDS ORDERED: ONDANSETRON INJ 4 MG/2 ML VIAL IV ONE (15:38)
[2019-01-26] MEDS ORDERED: SODIUM CHLORIDE 0.9% 1000ML 1,000 ML IVS ONE (15:38)
--- NOTE | 2019-01-26 15:38 | ED.PDOC ---
History of Present Illness - General Chief Complaint: Abdominal Pain Stated Complaint: abdominal pain Time Seen by Provider: 01/26/19 15:04 - History of Present Illness Initial Comments: this is a 48-year-old female who presents to the ED with complaints of abdominal pain. She was seen yesterday at [facility] and discharge with the diagnosis of constipation. She was seen here 3 days ago and had a CT evaluation of the abdomen performed which did not reveal any acute findings. She has been here on 7 occasions since December 01 of which were for abdominal pain. He states that she remains constipated and has not had a good stool for one week. She reports taking some MiraLAX this week. She has had some nausea and vomiting in the past 2 days.patient denies that she's had much of an appetite in the last week. She did eat some chicken several days ago and was able to hold it down. She also ate some broth earlier today. A diabetic that is not very well controlled. This was diagnosed in adulthood she states that she is a type II diabetic. patient denies fever and chills. Her abdominal surgeries consist of a several laparoscopic exploratory surgeries due to endometriosis and cholecystectomy, appendectomy, and a . Review of Systems - Review of Systems Constitutional: States: malaise. Denies: chills, diaphoresis, fever EENTM: States: other - dry mouth Respiratory: States: no symptoms reported Cardiology: States: no symptoms reported Gastrointestinal/Abdominal: States: abdominal pain, constipation, nausea, vomiting. Denies: diarrhea Genitourinary: States: no symptoms reported Musculoskeletal: States: no symptoms reported Skin: States: no symptoms reported Neurological: States: no symptoms reported Endocrine: States: increased thirst Hematologic/Lymphatic: States: no symptoms reported Past Medical History (General) - Patient Medical History Hx Seizures: No Hx Stroke: No Hx Dementia: No Hx Asthma: No Hx of COPD: No Hx Cardiac Disorders: Yes Hx Congestive Heart Failure: No Hx Pacemaker: No Hx Hypertension: No Hx Thyroid Disease: No Hx Diabetes: Yes Hx Gastroesophageal Reflux: Yes - and constipation Hx Renal Disease: No Hx Cancer: No Hx of HIV: No Hx Hepatitis C: No Hx MRSA: Yes - Head,Finger 2008, Head 2009, Urine 2010, Face 2011 MRSA Source:: Wound Surgical History: appendectomy, cholecystectomy - Vaccination History Hx Tetanus, Diphtheria Vaccination: Yes Hx Influenza Vaccination: Yes Hx Pneumococcal Vaccination: No - Social History Hx Tobacco Use: Yes Hx Chewing Tobacco Use: No Hx Alcohol Use: No Hx Substance Use: Yes Hx Substance Use Treatment: Yes Hx Depression: Yes Hx Physical Abuse: No Hx Emotional Abuse: No Hx Suspected Abuse: No - Female History Patient : No Family Medical History - Family History Mother Family History: Unknown Living Status: Still Living Hx Family Diabetes: Yes - mom Physical Exam - Physical Exam General Appearance: Alert, Other - patient is slightly uncomfortable due to abdominal pain Eyes, Ears, Nose, Throat Exam: PERRL/EOMI, normal ENT inspection, other - dry oropharynx Neck: non-tender, supple, normal inspection Respiratory: chest non-tender, lungs clear, normal breath sounds, no respiratory distress, no accessory muscle use Cardiovascular/Chest: normal peripheral pulses, regular rate, rhythm, no edema, no gallop, no JVD, no murmur Peripheral Pulses: No deficit Gastrointestinal/Abdominal: normal bowel sounds, soft, no organomegaly, no pulsatile mass, other - patient noted to have some tenderness in the left lower quadrant and periumbilical region no guarding or rebound is noted. 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 We will go ahead and get an obstructive series and evaluate. We'll also obtain a UA and chemistry as well as CBC and evaluate for other signs of pathology. We' ll bolus fluids as well as give antiemetics. 01/26/19 16:49 discussed all findings with the patient. She was made aware that she does not have an impaction. We discussed her x-rays as well. We discussed the proper use of the lactulose. She is aware that pain medications will exacerbate her condition. We will prepare her for discharge. - Results/Orders Results/Orders: IMPRESSION: No radiographic evidence of an acute cardiac pulmonary process. Possible constipation. No additional radiographic evidence of an acute intra- abdominal process. Electronically signed by: Lit Crespo MD 01/26/2019 4:12 PM CDT 01/26/19 15:20 URINALYSIS Stat 01/26/19 15:38 IV:Start .ONCE Laboratory Results - last 24 hr 01/26/19 01/26/19 01/26/19 15:27 15:30 15:30 WBC 5.0 RBC 4.37 Hgb 12.2 Hct 36.6 MCV 83.8 MCH 27.9 MCHC 33.3 RDW 15.6 H Plt Count 242 MPV 7.6 Absolute Neuts (auto) 2.50 Absolute Lymphs (auto) 2.00 Absolute Monos (auto) 0.50 Absolute Eos (auto) 0.10 Absolute Basos (auto) 0.00 Neutrophils % 49.2 Lymphocytes % 39.3 Monocytes % 9.0 Eosinophils % 2.0 Basophils % 0.5 Sodium 134 L Potassium 4.0 Chloride 95 L Carbon Dioxide 28 Anion Gap 15.0 BUN 23 H Creatinine 0.77 BUN/Creatinine Ratio 29.9 H Random Glucose 207 H Serum Osmolality 278.0 Calcium 10.1 Total Bilirubin 0.3 AST 12 ALT 13 Alkaline Phosphatase 46 Serum Total Protein 8.6 H Albumin 3.9 Globulin 4.7 H Albumin/Globulin Ratio 0.8 L Stool Occult Blood Negative Departure - Departure Clinical Impression: Constipation Qualifiers: Constipation type: chronic idiopathic constipation Qualified Code(s): K59.04 - Chronic idiopathic constipation Abdominal pain Qualifiers: Abdominal location: left lower quadrant Qualified Code(s): R10.32 - Left lower quadrant pain Time of Disposition: 16:51 Disposition: Discharge to Home or Self Care Condition: Good Departure Forms: ED Discharge - Pt. Copy, Patient Portal Self Enrollment Instructions: DI for Abdominal Pain-Adult Referrals: Ramon Torres MD [Primary Care Provider] - 1-2 Weeks Prescriptions: Polyethylene Glycol 3350 [Peg 3350] 1 pow PO BID #30 pow Home Medications: Ambulatory Orders Atorvastatin Calcium [Lipitor] 10 mg PO DAILY 07/09/18 Citalopram Hydrobromide [Citalopram] 20 mg PO DAILY 07/09/18 Gabapentin 600 mg PO TID 07/09/18 Acetaminophen W/ Codeine [Tylenol W/ CODEINE #3] 1 ea PO Q6H #15 08/15/18 Dicyclomine HCl [Bentyl] 20 mg PO Q6HR PRN #20 tab 11/30/18 Docusate Sodium [Colace Cap] 100 mg PO BID #20 cap 11/30/18 Polyethylene Glycol 3350 [Miralax] 17 gm PO DAILY 20 Days #20 pckt 11/30/18 Amoxicillin & Pot Clavulanate [Augmentin Tab] 875 mg PO BID 10 Days #20 tab 12/18/18 Azithromycin 250 mg PO DAILY 5 Days #6 tab 12/18/18 Buspirone HCl [Buspirone Hydrochloride] 10 mg PO 12/18/18 Ferrous Sulfate [Fe Tabs] 325 mg PO 12/18/18 Insulin Aspart [Novolog Flexpen] 12/18/18 Insulin Detemir [Levemir] 0 unit SUBCU 12/18/18 Lactulose (Encephalopathy) [Lactulose] 10 gm PO 12/18/18 Levalbuterol Nebs [Xopenex NEBS] 1.25 mg NEB 12/18/18 Melatonin 10 mg PO 12/18/18 Methocarbamol [Robaxin] 750 mg PO PRN PRN #20 tab 12/18/18 Multiple Vitamin [Multi-Vitamin] 1 tab PO 12/18/18 Nicotine Patch 21 mg [Habitrol Patch 21mg] 21 mg TOP 12/18/18 Nystatin-Triamcin Cream [Mycolog II Cream] 15 gm TOP 12/18/18 Pantoprazole Tablet [Protonix] 40 mg PO ACBK 12/18/18 Polyethylene Glycol 3350 [Miralax] 34 gm PO DAILY 20 Days #20 pckt 12/18/18 Pregabalin [Lyrica] 50 mg PO 12/18/18 Quetiapine Fumarate 50 mg PO 12/18/18 Umeclidinium [place] [Incruse Ellipta] 12/18/18 raNITIdine HCL [Zantac] 150 mg PO 12/18/18 Acetaminophen W/ Codeine [Tylenol W/ CODEINE #3] 1 ea PO Q6HRS #12 12/27/18 Fluconazole [Diflucan Tab] 100 mg PO DAILY #2 tab 01/01/19 Fluconazole [Diflucan Tab] 100 mg PO DAILY #2 tab 01/01/19 Nitrofurantoin Monohydrate Mac [Macrobid] 100 mg PO BID #10 capsule 01/01/19 Nitrofurantoin Monohydrate Mac [Macrobid] 100 mg PO BID #10 capsule 01/01/19 Polyethylene Glycol 3350 [Peg 3350] 1 pow PO BID #30 pow 01/26/19 Additional Instructions: Follow up with PCP in one week. Return to ED if symptoms worsen.
--- NOTE | 2019-01-26 16:13 | RAD ---
XR ABDOMEN SUPINE AND ERECT WITH CHEST (ABD ACUTE SERIES) HISTORY: 48 years Female abdominal pain COMPARISON: January 16, 2019. TECHNIQUE: Supine and upright views of the abdomen. FINDINGS: Chest: The lungs appear clear. Cardiomediastinal silhouette is unremarkable. Included osseous structures demonstrate no acute abnormality. Abdomen: Large volume colonic stool, suggesting possible constipation. No evidence of gastrointestinal obstruction. No radiographic evidence of free air. No pathologic calcifications detected. Surgical clips again project over the right abdomen. Fusion changes in the lower lumbar spine again noted, unchanged. IMPRESSION: No radiographic evidence of an acute cardiac pulmonary process. Possible constipation. No additional radiographic evidence of an acute intra-abdominal process. Electronically signed by: Lit Crespo MD 01/26/2019 4:12 PM CDT
[2019-01-26 17:20] VITALS: BP 117/72
== END 2019-01-26 17:20 | disposition home or self-care (01) ==
LOC: ER 14:55
DX: K59.04 Chronic idiopathic constipation (principal); R10.32 Left lower quadrant pain; R11.2 Nausea with vomiting, unspecified; I51.9 Heart disease, unspecified; E11.9 Type 2 diabetes mellitus without complications; K21.9 Gastro-esophageal reflux disease without esophagitis; F32.9 Major depressive disorder, single episode, unspecified; Z90.49 Acquired absence of other specified parts of digestive tract; Z87.891 Personal history of nicotine dependence; Z79.4 Long term (current) use of insulin; Z79.899 Other long term (current) drug therapy
CPT/HCPCS: 36415; 74019; 80053; 82270; 85025; J2405; J7030

== ENCOUNTER 2019-01-29 09:36 | Emergency (ER) | payer MEDICARE, MEDICAID ==
[2019-01-29] MEDS ORDERED: SODIUM CHLORIDE 0.9% 1000ML 1,000 ML IVS ONE (09:59)
[2019-01-29 10:00] VITALS: TEMP 98.4
[2019-01-29] MEDS ORDERED: ACETAMINOPHEN IV 1000MG 1,000 MG in PREMIX BOTTLE 1 BOTTLE IVPB ONE (10:04)
--- NOTE | 2019-01-29 10:06 | ED.PDOC ---
History of Present Illness - General Chief Complaint: Abdominal Pain Time Seen by Provider: 01/29/19 09:56 Information Source: patient Exam Limitations: no limitations - History of Present Illness Initial Comments: 48 yo F who presents to the ED for L sided burning abd pain onset one month ago, sometimes occurs on the R side, L side is constant since that time, burning in nature, no radiation, associated nausea and constipation that cleared with taking miralax and now has diarrhea. Has been seen by PCP and multiple ED's with negative workup. Pt was treated at one point in time for a UTI with cipro. Reports mild frequency today. On direct questioning reports lower sternal/epigastric abd pain, constant for three days, no change, burning in nature, no radiation. Reports CAD with hx of one stent. Pt is not on any blood thinners. On direct questioning also endorses fever yesterday, denies body aches, or associated URI sx. Reports hx of MRSA infection in her L foot and has been walking with a walker since that time, tripped and fell into the car today, reports L knee and hip pain, reports she lightly grazed her head on the car but denies any pain. Denies chills, cough, congestion, SOB, vomiting, dysuria, hematuria, melena, hematochezia, hematemesis, weakness, numbness. Review of Systems - Review of Systems Constitutional: States: fever. Denies: chills EENTM: Denies: nose congestion, throat pain Respiratory: Denies: cough, orthopnea, short of breath Cardiology: States: chest pain. Denies: edema, palpitations, syncope Gastrointestinal/Abdominal: States: abdominal pain, constipation, diarrhea, nausea. Denies: vomiting Genitourinary: States: frequency. Denies: discharge, dysuria, hematuria Musculoskeletal: States: joint pain. Denies: back pain, joint swelling, muscle pain, neck pain Skin: Denies: lesions, rash Neurological: Denies: headache, numbness, weakness Endocrine: Denies: increased thirst, increased urine Hematologic/Lymphatic: Denies: easy bleeding, easy bruising Past Medical History (General) - Patient Medical History Hx Seizures: No Hx Stroke: No Hx Dementia: No Hx Asthma: No Hx of COPD: No Hx Cardiac Disorders: Yes Hx Congestive Heart Failure: No Hx Pacemaker: No Hx Hypertension: No Hx Thyroid Disease: No Hx Diabetes: Yes Hx Gastroesophageal Reflux: Yes - and constipation Hx Renal Disease: No Hx Cancer: No Hx of HIV: No Hx Hepatitis C: No Hx MRSA: Yes - Head,Finger 2008, Head 2009, Urine 2010, Face 2012 MRSA Source:: Wound - Vaccination History Hx Tetanus, Diphtheria Vaccination: Yes Hx Influenza Vaccination: Yes Hx Pneumococcal Vaccination: No - Social History Hx Tobacco Use: Yes Hx Chewing Tobacco Use: No Hx Alcohol Use: No Hx Substance Use: Yes Hx Substance Use Treatment: Yes Hx Depression: Yes Hx Physical Abuse: No Hx Emotional Abuse: No Hx Suspected Abuse: No - Female History Patient : No Family Medical History - Family History Mother Family History: Unknown Living Status: Still Living Hx Family Diabetes: Yes - mom Physical Exam - Physical Exam General Appearance: Alert, Comfortable, Well Developed, Well Nourished Neck: non-tender, full range of motion, supple Respiratory: chest non-tender, lungs clear, normal breath sounds, no respiratory distress, no accessory muscle use Cardiovascular/Chest: normal peripheral pulses, regular rate, rhythm, no edema, no gallop, no JVD, no murmur Peripheral Pulses: No deficit Gastrointestinal/Abdominal: normal bowel sounds, soft, no organomegaly, no pulsatile mass, tenderness - mild, L sided, other - No distention, guarding, rebound Back Exam: normal inspection, no CVA tenderness, no vertebral tenderness Extremity: normal range of motion, non-tender, normal inspection, no pedal edema, no calf tenderness Neurologic: no motor/sensory deficits, alert Skin Exam: normal color, warm/dry Lymphatic: no adenopathy Progress - Progress Progress: 01/29/19 11:48 Pt continues to complaining of burning L sided pain, will give haldol. Explained that we will not be using narcotics. Pt verbalizes understanding. 01/29/19 12:24 Pt is doing well, resting comfortably. Repeat trop being drawn. 01/29/19 12:46 Pt reports pain resolved, awaiting repeat trop. 01/29/19 13:22 I have explained and reviewed all results with the pt. Encouraged OTC fiber supplements. Pt declines antibx for UTI at this time, would like to await urine culture. Encouraged BP diary. I explained that emergent conditions may arise and to return to the ER for new, worsening, or any persistent conditions. I've explained the importance of f/u for recheck. All questions and concerns addressed at this time. Pt understands and agrees with plan. Pt well appearing, NAD, is stable for discharge. Anamaria Jameson MD Emergency Medicine Physician Billing Number [id number] - Results/Orders Results/Orders: L KNEE: EXAM DESCRIPTION: Knee,Left Complete CLINICAL HISTORY: 48 years, Female, pain COMPARISON: None TECHNIQUE: Three views of the left knee FINDINGS: No acute displaced fracture or dislocation is seen. The alignment of the knee is intact. Trace knee joint effusion. Mild atherosclerotic vascular calcifications are present. The soft tissues are unremarkable. IMPRESSION: 1. No acute osseous abnormality. 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 No advanced arthrosis or focal osteochondral lesion No fracture. Proximal femur or pelvis included in the [id number] Electronically signed by: Billy Stephenson MD 01/29/2019 11:25 AM MANAGER CAR CXR: EXAM DESCRIPTION: Chest,2 Views CLINICAL HISTORY: pain COMPARISON: January 23, 2019 FINDINGS: Two-view chest x-ray shows cardiomediastinal silhouette and pulmonary vasculature to be within normal limits. The lungs are normally aerated. Chronic, linear scarring or atelectasis in the left upper lobe similar to previous exam.. Costophrenic angles are sharp. Osseous structures are unremarkable IMPRESSION: No radiographic evidence of acute cardiopulmonary disease. Chronic changes to the left upper lobe are stable from prior examinations. Electronically signed by: Toby Adamson MD 01/29/2019 11:[address] ABD/PELVIS: EXAM DESCRIPTION: Abdomen/Pelvis w/Contrast CLINICAL HISTORY: 48 years Female, pain COMPARISON: CT abdomen and pelvis without contrast dated 01/23/2019. TECHNIQUE: Contiguous 3 mm axial images were obtained from the lung bases to the level of the proximal femora after the administration of intravenous and oral contrast. Sagittal and coronal reconstructions were reviewed. FINDINGS: THORAX: The imaged lower thorax demonstrates no gross abnormality. LIVER: The liver demonstrates normal size and density with no intrahepatic biliary ductal dilatation or focal masses. GALLBLADDER: Surgically absent. PANCREAS: Appears normal with no cystic or solid lesions. SPLEEN: Normal ADRENAL GLANDS: Normal with no nodules or masses. KIDNEYS: Multiple areas of scarring are noted in the right kidney probably from prior infections or infarctions. Of hydronephrosis or perinephric fluid collections bilaterally. The visualized ureters appear grossly unremarkable. STOMACH: Small hiatal hernia with evidence of reflux. The stomach is mildly distended with no gross abnormality. SMALL BOWEL: Few prominent and fluid-filled small bowel loops are identified in the left upper quadrant probably representing ileus. LARGE BOWEL: Majority of the colon is not well- distended limiting detailed evaluation. The appendix is surgically absent. No evidence of free intraperitoneal air or fluid. RETROPERITONEUM: The abdominal aorta is nonaneurysmal with mild to moderate atherosclerosis. The inferior vena cava is normal in size and caliber. No abnormally enlarged retroperitoneal lymph nodes are identified. URINARY BLADDER:The urinary bladder is well-distended with no gross abnormality. The uterus and ovaries are surgically absent. ADDITIONAL FINDINGS: None. BONES: Mild degenerative changes are identified in the visualized bones. Posterior spinal fixation hardware is noted traversing L4 and L5 vertebral bodies. IMPRESSION: 1. Small hiatal hernia with reflux. 2. Few prominent and fluid-filled small bowel loops are identified in the left upper quadrant probably representing ileus. No acute intra-abdominal or intrapelvic process is visualized. This exam was performed according to our departmental dose-optimization program, which includes automated exposure control, adjustment of the mA and/or kV according to patient size and/or use of iterative reconstruction technique. Electronically signed by: Maude Tapia MD 01/29/2019 11:08 AM MANAGER CAR - EKG/XRAY/CT EKG: Sinus, Tachy, Unchanged from - previous Comments: R superior axis, Low voltage, nonspecific ST, T wave inversion aVL Departure - Departure Clinical Impression: Acute abdominal pain, Hiatal hernia, Hyperglycemia, Elevated blood pressure reading Chest pain, unspecified Qualifiers: Chest pain type: unspecified Qualified Code(s): R07.9 - Chest pain, unspecified Time of Disposition: 13:20 Disposition: Discharge to Home or Self Care Health Concerns: Condition: Stable Departure Forms: ED Discharge - Pt. Copy, Patient Portal Self Enrollment Instructions: DI for Abdominal Pain-Adult, Hiatal Hernia (DC) Referrals: Ramon Torres MD [Primary Care Provider] - 1-2 Days ARCHIE MELENDEZ MD [Physicians] - 1 Week Home Medications: Ambulatory Orders Atorvastatin Calcium [Lipitor] 10 mg PO DAILY 07/09/18 Citalopram Hydrobromide [Citalopram] 20 mg PO DAILY 07/09/18 Gabapentin 600 mg PO TID 07/09/18 Acetaminophen W/ Codeine [Tylenol W/ CODEINE #3] 1 ea PO Q6H #15 08/15/18 Dicyclomine HCl [Bentyl] 20 mg PO Q6HR PRN #20 tab 11/30/18 Docusate Sodium [Colace Cap] 100 mg PO BID #20 cap 11/30/18 Polyethylene Glycol 3350 [Miralax] 17 gm PO DAILY 20 Days #20 pckt 11/30/18 Amoxicillin & Pot Clavulanate [Augmentin Tab] 875 mg PO BID 10 Days #20 tab 12/18/18 Azithromycin 250 mg PO DAILY 5 Days #6 tab 12/18/18 Buspirone HCl [Buspirone Hydrochloride] 10 mg PO 12/18/18 Ferrous Sulfate [Fe Tabs] 325 mg PO 12/18/18 Insulin Aspart [Novolog Flexpen] 12/18/18 Insulin Detemir [Levemir] 0 unit SUBCU 12/18/18 Lactulose (Encephalopathy) [Lactulose] 10 gm PO 12/18/18 Levalbuterol Nebs [Xopenex NEBS] 1.25 mg NEB 12/18/18 Melatonin 10 mg PO 12/18/18 Methocarbamol [Robaxin] 750 mg PO PRN PRN #20 tab 12/18/18 Multiple Vitamin [Multi-Vitamin] 1 tab PO 12/18/18 Nicotine Patch 21 mg [Habitrol Patch 21mg] 21 mg TOP 12/18/18 Nystatin-Triamcin Cream [Mycolog II Cream] 15 gm TOP 12/18/18 Pantoprazole Tablet [Protonix] 40 mg PO ACBK 12/18/18 Polyethylene Glycol 3350 [Miralax] 34 gm PO DAILY 20 Days #20 pckt 12/18/18 Pregabalin [Lyrica] 50 mg PO 12/18/18 Quetiapine Fumarate 50 mg PO 12/18/18 Umeclidinium [place] [Incruse Ellipta] 12/18/18 raNITIdine HCL [Zantac] 150 mg PO 12/18/18 Acetaminophen W/ Codeine [Tylenol W/ CODEINE #3] 1 ea PO Q6HRS #12 12/27/18 Fluconazole [Diflucan Tab] 100 mg PO DAILY #2 tab 01/01/19 Fluconazole [Diflucan Tab] 100 mg PO DAILY #2 tab 01/01/19 Nitrofurantoin Monohydrate Mac [Macrobid] 100 mg PO BID #10 capsule 01/01/19 Nitrofurantoin Monohydrate Mac [Macrobid] 100 mg PO BID #10 capsule 01/01/19 Polyethylene Glycol 3350 [Peg 3350] 1 pow PO BID #30 pow 01/26/19 Additional Instructions: Referral: [facility] As needed, if symptoms worsen Dr. Silverman, cardiology Make appointment in two days for follow up
[2019-01-29] MEDS ORDERED: DICYCLOMINE HCL 20 MG TAB PO ONE (11:09)
--- NOTE | 2019-01-29 11:10 | CT ---
EXAM DESCRIPTION: Abdomen/Pelvis w/Contrast CLINICAL HISTORY: 48 years Female, pain COMPARISON: CT abdomen and pelvis without contrast dated 01/23/2019. TECHNIQUE: Contiguous 3 mm axial images were obtained from the lung bases to the level of the proximal femora after the administration of intravenous and oral contrast. Sagittal and coronal reconstructions were reviewed. FINDINGS: THORAX: The imaged lower thorax demonstrates no gross abnormality. LIVER: The liver demonstrates normal size and density with no intrahepatic biliary ductal dilatation or focal masses. GALLBLADDER: Surgically absent. PANCREAS: Appears normal with no cystic or solid lesions. SPLEEN: Normal ADRENAL GLANDS: Normal with no nodules or masses. KIDNEYS: Multiple areas of scarring are noted in the right kidney probably from prior infections or infarctions. Of hydronephrosis or perinephric fluid collections bilaterally. The visualized ureters appear grossly unremarkable. STOMACH: Small hiatal hernia with evidence of reflux. The stomach is mildly distended with no gross abnormality. SMALL BOWEL: Few prominent and fluid-filled small bowel loops are identified in the left upper quadrant probably representing ileus. LARGE BOWEL: Majority of the colon is not well-distended limiting detailed evaluation. The appendix is surgically absent. No evidence of free intraperitoneal air or fluid. RETROPERITONEUM: The abdominal aorta is nonaneurysmal with mild to moderate atherosclerosis. The inferior vena cava is normal in size and caliber. No abnormally enlarged retroperitoneal lymph nodes are identified. URINARY BLADDER:The urinary bladder is well-distended with no gross abnormality. The uterus and ovaries are surgically absent. ADDITIONAL FINDINGS: None. BONES: Mild degenerative changes are identified in the visualized bones. Posterior spinal fixation hardware is noted traversing L4 and L5 vertebral bodies. IMPRESSION: 1. Small hiatal hernia with reflux. 2. Few prominent and fluid-filled small bowel loops are identified in the left upper quadrant probably representing ileus. No acute intra-abdominal or intrapelvic process is visualized. This exam was performed according to our departmental dose-optimization program, which includes automated exposure control, adjustment of the mA and/or kV according to patient size and/or use of iterative reconstruction technique. Electronically signed by: Maude Tapia MD 01/29/2019 11:08 AM PASSENGER RELATIONS REPRESENTATIVE
--- NOTE | 2019-01-29 11:27 | RAD ---
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 No advanced arthrosis or focal osteochondral lesion No fracture. Proximal femur or pelvis included in the [id number] Electronically signed by: Billy Stephenson MD 01/29/2019 11:25 AM [facility]
--- NOTE | 2019-01-29 11:27 | RAD ---
EXAM DESCRIPTION: Chest,2 Views CLINICAL HISTORY: pain COMPARISON: January 23, 2019 FINDINGS: Two-view chest x-ray shows cardiomediastinal silhouette and pulmonary vasculature to be within normal limits. The lungs are normally aerated. Chronic, linear scarring or atelectasis in the left upper lobe similar to previous exam.. Costophrenic angles are sharp. Osseous structures are unremarkable IMPRESSION: No radiographic evidence of acute cardiopulmonary disease. Chronic changes to the left upper lobe are stable from prior examinations. Electronically signed by: Toby Adamson MD 01/29/2019 11:26 AM [facility]
--- NOTE | 2019-01-29 11:29 | RAD ---
EXAM DESCRIPTION: Knee,Left Complete CLINICAL HISTORY: 48 years, Female, pain COMPARISON: None TECHNIQUE: Three views of the left knee FINDINGS: No acute displaced fracture or dislocation is seen. The alignment of the knee is intact. Trace knee joint effusion. Mild atherosclerotic vascular calcifications are present. The soft tissues are unremarkable. IMPRESSION: 1. No acute osseous abnormality. Electronically signed by: Han Horan DO 01/29/2019 11:28 AM [facility]
[2019-01-29] MEDS ORDERED: HALOPERIDOL LACTATE INJ 5 MG/ML VIAL IV ONE (11:36)
[2019-01-29] MEDS ORDERED: LABETALOL INJ 5 MG/ML VIAL IV ONE (13:13)
[2019-01-29 14:00] VITALS: BP 126/83; O2SAT 100
== END 2019-01-29 13:50 | disposition home or self-care (01) ==
LOC: ER 09:36
DX: R07.9 Chest pain, unspecified (principal); R10.13 Epigastric pain; K44.9 Diaphragmatic hernia without obstruction or gangrene; E11.65 Type 2 diabetes mellitus with hyperglycemia; R03.0 Elevated blood-pressure reading, without diagnosis of hypertension; R00.0 Tachycardia, unspecified; R11.0 Nausea; R19.7 Diarrhea, unspecified; K59.00 Constipation, unspecified; I25.10 Atherosclerotic heart disease of native coronary artery without angina pectoris; K21.9 Gastro-esophageal reflux disease without esophagitis; F32.9 Major depressive disorder, single episode, unspecified; Z87.891 Personal history of nicotine dependence; Z95.5 Presence of coronary angioplasty implant and graft
CPT/HCPCS: 36415; 71046; 73502; 73562; 74177; 80053; 81001; 83690; 84484; 85025; 87086; J1630; J7030

== ENCOUNTER 2019-01-31 08:25 | Emergency (ER) | payer MEDICARE, MEDICAID ==
[2019-01-31] MEDS ORDERED: ALUM & MAG HYDROX-SIMETHICONE 30 ML UD PO ONE (08:26)
[2019-01-31] MEDS ORDERED: LIDOCAINE HCL 2% (MOUTH-THROAT) 15 ML UD PO ONE (08:26)
[2019-01-31] MEDS ORDERED: HALOPERIDOL LACTATE INJ 5 MG/ML VIAL ONE (09:34)
--- NOTE | 2019-02-01 11:59 | CT ---
EXAM DESCRIPTION: CTA Chest with IV contrast. : Computed Tomography. CLINICAL HISTORY: elevated d dimer. History of cigarette smoking. COMPARISON: Portable chest x-ray today and 29 January 2019. TECHNIQUE: Spiral-axial scans at 2.5 x 2.5 mm intervals through the pulmonary arteries and chest after bolus infusion of IV contrast. Lung algorithm 1.25 x 2.5-mm axial reconstructions. Coronal and sagittal 2.0 Mm reconstructions. 10.0 mm PE oblique 3-D reformatted images. No adverse reactions. Total Exam DLP: 781.9 mGy-cm. This exam was performed according to our departmental CT dose-optimization program which includes automated exposure control, adjustment of the mA and/or kV according to patient size and/or use of iterative reconstruction technique; to reduce radiation dose to as low as reasonably achievable (ALARA). FINDINGS: Pulmonary arteries: Density is similar to the density in the left ventricle and aorta. Less dense than the superior vena cava and right atrium. Pulmonary artery system is well demonstrated with contrast from the main pulmonary artery to the bilateral subsegmental branches with no filling defects. The bilateral pulmonary artery peripheral branches are symmetric in size. Heart and other great vessels: Brachiocephalic vessels with atherosclerotic calcification also seen in the distal descending thoracic aorta with intimal wall thickening. Coronary artery calcifications. Lungs and airways: Minimal mosaic parenchymal density bilaterally. Pleural parenchymal scarring lateral left apex. Minimal bibasilar dependent atelectasis. No abnormal nodules and no masses. No focal infiltrates. Pleura: Negative. Mediastinum and randy: scatter artifact from dense PA contrast. Small lymph nodes with no dominant soft tissue masses. Soft tissue neck, chest wall, and axillae: Bilateral normal size axillary lymph nodes. Inhomogeneous thyroid gland enhancement with calcified nodule measuring 1 cm in the lateral upper right lobe and inhomogeneous decreased enhancing nodule in the mid right lobe measuring 1.6 x 1.5 cm. Upper abdomen: Small hiatal hernia. No free air or free fluid in the included peritoneal space. Atherosclerotic changes in the aorta and major branch vessels that are included. Surgical clips gallbladder fossa. Included spleen and adrenal glands are negative. Osseous structures: Spondylosis and scoliosis in the thoracic spine with prior posterior fusion in the included cervical spine. No lytic or blastic lesions. IMPRESSION: 1. No acute pulmonary embolus by CTA of the pulmonary arteries. 2. Findings which could represent chronic bronchitis in the lungs but also consistent with clinical history of cigarette smoking. No masses or abnormal nodules. No acute infiltrate. 3. Small hiatal hernia. 4. Atherosclerotic calcifications coronary arteries, aorta, abdominal aorta and brachiocephalic vessels, notable for patient's age. 5. 1.6 cm incidental thyroid nodule. 1 cm nodule with peripheral calcification. Both in the right lobe. Recommend thyroid US. Reference: J Am Amalia Radiol. 2015 Apr;12(2): 143-50. Electronically signed by: Damion Vargas MD 01/31/2019 8:33 PM [facility]
--- NOTE | 2019-02-01 12:00 | RAD ---
EXAM DESCRIPTION: XR CHEST 1 VIEW: CR/DR/XR. CLINICAL HISTORY: 48 years Female chest pain. History of cigarette smoking. COMPARISON: Portable AP chest 01/29/2019. May 2008 single view chest x-ray. TECHNIQUE: ONE VIEW PORTABLE. AP 849 hours, upright position. FINDINGS: Perihilar peribronchial wall cuffing and minimal prominence of interstitial markings bilaterally stable since the prior chest x-ray. No acute infiltrate heart size borderline enlarged with normal pulmonary vascularity. No mediastinal widening. IMPRESSION: Chronic densities in the lungs with no acute infiltrate or pleural effusion. Stable since prior chest x-ray 2 days ago and December 2008. Report was called to Dr. Huerta in the Emergency Medicine Department at approximately 915 hours on January 31, 2019. Electronically signed by: Damion Vargas MD 01/31/2019 8:14 PM PROOF MACHINE OPERATOR
== END 2019-01-31 11:00 | disposition home or self-care (01) ==
LOC: ER 08:25
DX: F41.9 Anxiety disorder, unspecified (principal); R07.9 Chest pain, unspecified; R11.0 Nausea; I10 Essential (primary) hypertension; I25.10 Atherosclerotic heart disease of native coronary artery without angina pectoris
CPT/HCPCS: 71045; 71275; 80053; 84484; 85025; 85379; 93005; J1630; J2060

== ENCOUNTER 2019-02-01 15:14 | Emergency (ER) | payer MEDICARE, MEDICAID ==
[2019-02-01 15:52] VITALS: O2SAT 99
--- NOTE | 2019-02-01 15:53 | ED.PDOC ---
History of Present Illness - General Chief Complaint: GI Problem Stated Complaint: diarrhea Time Seen by Provider: 02/01/19 15:49 Information Source: patient Exam Limitations: no limitations - History of Present Illness Initial Comments: this is a 48-year-old white female who presents today for complaints of diarrhea. She states that 2 days ago she had an episode of emesis as well. She was seen here last week for constipation. She was discharged on lactulose and states that she has been using it daily and now has had bowel movements. She is worried that she may have C. difficile because her stool smell like they did when she had it in a previous episode. She denies any fever or chills. She is noted to be slightly tachycardic currently. Mentions that she has some left flank tenderness. No fever or chills have been reported. And abdominal pain has improved from last week. Review of Systems - Review of Systems Constitutional: States: no symptoms reported, see HPI EENTM: States: no symptoms reported Respiratory: States: no symptoms reported. Denies: cough, short of breath Cardiology: States: no symptoms reported. Denies: syncope Gastrointestinal/Abdominal: States: diarrhea, nausea, vomiting Genitourinary: States: no symptoms reported. Denies: discharge, dysuria Musculoskeletal: States: back pain Skin: States: no symptoms reported, see HPI Neurological: States: no symptoms reported, see HPI Hematologic/Lymphatic: States: no symptoms reported All other Systems: Reviewed and Negative Past Medical History (General) - Patient Medical History Hx Seizures: No Hx Stroke: No Hx Dementia: No Hx Asthma: No Hx of COPD: No Hx Cardiac Disorders: Yes Hx Congestive Heart Failure: No Hx Pacemaker: No Hx Hypertension: No Hx Thyroid Disease: No Hx Diabetes: Yes Hx Gastroesophageal Reflux: Yes - and constipation Hx Renal Disease: No Hx Cancer: No Hx of HIV: No Hx Hepatitis C: No Hx MRSA: Yes - Head,Finger 2008, Head 2009, Urine 2010, Face 2011 MRSA Source:: Wound - Vaccination History Hx Tetanus, Diphtheria Vaccination: Yes Hx Influenza Vaccination: Yes Hx Pneumococcal Vaccination: No - Social History Hx Tobacco Use: Yes Hx Chewing Tobacco Use: No Hx Alcohol Use: No Hx Substance Use: Yes Hx Substance Use Treatment: Yes Hx Depression: Yes Hx Physical Abuse: No Hx Emotional Abuse: No Hx Suspected Abuse: No - Female History Patient : No Family Medical History - Family History Mother Family History: Unknown Living Status: Still Living Hx Family Diabetes: Yes - mom Physical Exam - Physical Exam General Appearance: Comfortable, No apparent distress, Other - patient is noted to be much improved from her last visit is much more energetic Eyes, Ears, Nose, Throat Exam: PERRL/EOMI, normal ENT inspection, pharynx normal Neck: non-tender, full range of motion, supple Respiratory: chest non-tender, lungs clear, normal breath sounds, no respiratory distress, no accessory muscle use, respiratory distress Cardiovascular/Chest: normal peripheral pulses, no edema, no gallop, no JVD, no murmur, tachycardia Peripheral Pulses: No deficit Gastrointestinal/Abdominal: normal bowel sounds, non tender, soft, other - no guarding or rebound Rectal Exam: deferred Extremity: normal range of motion, non-tender, normal inspection, no pedal edema Neurologic: disbursing agent II-XII nml as tested, no motor/sensory deficits, alert, normal mood/affect, oriented x 3 Skin Exam: normal color, warm/dry Progress - Progress Progress: 02/01/19 17:57 patient states that she cannot give us a stool sample this time. We will not hold her any longer to get a stool sample. She does have home health and they can obtain it. She has an appointment with gastroenterology in the a.m. Departure - Departure Clinical Impression: Diarrhea Qualifiers: Diarrhea type: unspecified type Qualified Code(s): R19.7 - Diarrhea, unspecified Back pain Qualifiers: Back pain location: low back pain Chronicity: chronic Back pain laterality: left Sciatica presence: without sciatica Qualified Code(s): M54.5 - Low back pain; G89.29 - Other chronic pain Time of Disposition: 18:16 Disposition: Discharge to Home or Self Care Condition: Good Departure Forms: ED Discharge - Pt. Copy, Patient Portal Self Enrollment Instructions: DI for Diarrhea and Traveler's Diarrhea -- Adult Referrals: Ramon Torres MD [Primary Care Provider] - 1-2 Weeks Home Medications: Ambulatory Orders Atorvastatin Calcium [Lipitor] 10 mg PO DAILY 07/09/18 Citalopram Hydrobromide [Citalopram] 20 mg PO DAILY 07/09/18 Gabapentin 600 mg PO TID 07/09/18 Acetaminophen W/ Codeine [Tylenol W/ CODEINE #3] 1 ea PO Q6H #15 08/15/18 Dicyclomine HCl [Bentyl] 20 mg PO Q6HR PRN #20 tab 11/30/18 Docusate Sodium [Colace Cap] 100 mg PO BID #20 cap 11/30/18 Polyethylene Glycol 3350 [Miralax] 17 gm PO DAILY 20 Days #20 pckt 11/30/18 Amoxicillin & Pot Clavulanate [Augmentin Tab] 875 mg PO BID 10 Days #20 tab 12/18/18 Azithromycin 250 mg PO DAILY 5 Days #6 tab 12/18/18 Buspirone HCl [Buspirone Hydrochloride] 10 mg PO 12/18/18 Ferrous Sulfate [Fe Tabs] 325 mg PO 12/18/18 Insulin Aspart [Novolog Flexpen] 12/18/18 Insulin Detemir [Levemir] 0 unit SUBCU 12/18/18 Lactulose (Encephalopathy) [Lactulose] 10 gm PO 12/18/18 Levalbuterol Nebs [Xopenex NEBS] 1.25 mg NEB 12/18/18 Melatonin 10 mg PO 12/18/18 Methocarbamol [Robaxin] 750 mg PO PRN PRN #20 tab 12/18/18 Multiple Vitamin [Multi-Vitamin] 1 tab PO 12/18/18 Nicotine Patch 21 mg [Habitrol Patch 21mg] 21 mg TOP 12/18/18 Nystatin-Triamcin Cream [Mycolog II Cream] 15 gm TOP 12/18/18 Pantoprazole Tablet [Protonix] 40 mg PO ACBK 12/18/18 Polyethylene Glycol 3350 [Miralax] 34 gm PO DAILY 20 Days #20 pckt 12/18/18 Pregabalin [Lyrica] 50 mg PO 12/18/18 Quetiapine Fumarate 50 mg PO 12/18/18 Umeclidinium [place] [Incruse Ellipta] 12/18/18 raNITIdine HCL [Zantac] 150 mg PO 12/18/18 Acetaminophen W/ Codeine [Tylenol W/ CODEINE #3] 1 ea PO Q6HRS #12 12/27/18 Fluconazole [Diflucan Tab] 100 mg PO DAILY #2 tab 01/01/19 Fluconazole [Diflucan Tab] 100 mg PO DAILY #2 tab 01/01/19 Nitrofurantoin Monohydrate Mac [Macrobid] 100 mg PO BID #10 capsule 01/01/19 Nitrofurantoin Monohydrate Mac [Macrobid] 100 mg PO BID #10 capsule 01/01/19 Polyethylene Glycol 3350 [Peg 3350] 1 pow PO BID #30 pow 01/26/19 Additional Instructions: keep appointment for gastroenterology appointment in the morning. Cut lactulose dosage in half. Follow-up with PCP for discussion of pain management. Return to ER when necessary
[2019-02-01] MEDS ORDERED: ONDANSETRON INJ 4 MG/2 ML VIAL IV ONE (15:59)
[2019-02-01] MEDS ORDERED: SODIUM CHLORIDE 0.9% 1000ML 1,000 ML IVS ONE (15:59)
[2019-02-01] MEDS ORDERED: KETOROLAC TROMETHAMINE INJ 30 MG/ML VIAL IV ONE (15:59)
[2019-02-01] MEDS ORDERED: fentaNYL CITRATE INJ 50 MCG/ML AMP IV ONE (17:29)
[2019-02-01 18:59] VITALS: BP 150/104; TEMP 97.1
== END 2019-02-01 18:50 | disposition home or self-care (01) ==
LOC: ER 15:14
DX: R19.7 Diarrhea, unspecified (principal); M54.5 Low back pain; G89.29 Other chronic pain; I51.9 Heart disease, unspecified; E11.9 Type 2 diabetes mellitus without complications; K21.9 Gastro-esophageal reflux disease without esophagitis; F32.9 Major depressive disorder, single episode, unspecified; Z87.891 Personal history of nicotine dependence
CPT/HCPCS: 36415; 80053; 83605; 85025; J1885; J2405; J3010; J7030

== ENCOUNTER 2019-02-13 11:36 | Emergency (ER) | payer MEDICARE, MEDICAID ==
[2019-02-13 11:43] VITALS: TEMP 97.7
--- NOTE | 2019-02-13 11:48 | ED.PDOC ---
History of Present Illness - General Chief Complaint: Trauma Stated Complaint: s/p fall,back and head pain Time Seen by Provider: 02/13/19 11:45 Source: patient Exam Limitations: no limitations - History of Present Illness Initial Comments: 48 yo F who presents for fall. Pt states that her L knee frequently gives out which is what caused her to fall today. Pt does walk with a walker and was using it today. States she fell onto her bottom and then continued to fall backwards lightly hitting the back of her head. Denies LOC, denies anticoagulation use. Reports headache from the trauma and L midline spine tenderness, worse with movement. Pt had a colonoscopy and endoscopy yesterday, had polyps removed, doing well from that standpoint and denies any sx. Denies f/c, cough, c ongestion, CP, SOB, abd pain, n/v/d, edema, urinary sx, weakness, numbness, change in vision, syncope, blood in stool. Allergies/Adverse Reactions: Allergies NO KNOWN ALLERGY Allergy (Verified 11/30/18 09:32) Home Medications: Ambulatory Orders Atorvastatin Calcium [Lipitor] 10 mg PO DAILY 07/09/18 Citalopram Hydrobromide [Citalopram] 20 mg PO DAILY 07/09/18 Gabapentin 600 mg PO TID 07/09/18 Acetaminophen W/ Codeine [Tylenol W/ CODEINE #3] 1 ea PO Q6H #15 08/15/18 Dicyclomine HCl [Bentyl] 20 mg PO Q6HR PRN #20 tab 11/30/18 Docusate Sodium [Colace Cap] 100 mg PO BID #20 cap 11/30/18 Polyethylene Glycol 3350 [Miralax] 17 gm PO DAILY 20 Days #20 pckt 11/30/18 Amoxicillin & Pot Clavulanate [Augmentin Tab] 875 mg PO BID 10 Days #20 tab 12/18/18 Azithromycin 250 mg PO DAILY 5 Days #6 tab 12/18/18 Buspirone HCl [Buspirone Hydrochloride] 10 mg PO 12/18/18 Ferrous Sulfate [Fe Tabs] 325 mg PO 12/18/18 Insulin Aspart [Novolog Flexpen] 12/18/18 Insulin Detemir [Levemir] 0 unit SUBCU 12/18/18 Lactulose (Encephalopathy) [Lactulose] 10 gm PO 12/18/18 Levalbuterol Nebs [Xopenex NEBS] 1.25 mg NEB 12/18/18 Melatonin 10 mg PO 12/18/18 Methocarbamol [Robaxin] 750 mg PO PRN PRN #20 tab 12/18/18 Multiple Vitamin [Multi-Vitamin] 1 tab PO 12/18/18 Nicotine Patch 21 mg [Habitrol Patch 21mg] 21 mg TOP 12/18/18 Nystatin-Triamcin Cream [Mycolog II Cream] 15 gm TOP 12/18/18 Pantoprazole Tablet [Protonix] 40 mg PO ACBK 12/18/18 Polyethylene Glycol 3350 [Miralax] 34 gm PO DAILY 20 Days #20 pckt 12/18/18 Pregabalin [Lyrica] 50 mg PO 12/18/18 Quetiapine Fumarate 50 mg PO 12/18/18 Umeclidinium [place] [Incruse Ellipta] 12/18/18 raNITIdine HCL [Zantac] 150 mg PO 12/18/18 Acetaminophen W/ Codeine [Tylenol W/ CODEINE #3] 1 ea PO Q6HRS #12 12/27/18 Fluconazole [Diflucan Tab] 100 mg PO DAILY #2 tab 01/01/19 Fluconazole [Diflucan Tab] 100 mg PO DAILY #2 tab 01/01/19 Nitrofurantoin Monohydrate Mac [Macrobid] 100 mg PO BID #10 capsule 01/01/19 Nitrofurantoin Monohydrate Mac [Macrobid] 100 mg PO BID #10 capsule 01/01/19 Polyethylene Glycol 3350 [Peg 3350] 1 pow PO BID #30 pow 01/26/19 Methocarbamol [Robaxin] 500 mg PO Q8H PRN #12 tab 02/13/19 Review of Systems - Review of Systems Constitutional: Denies: chills, fever EENTM: Denies: nose congestion, throat pain Respiratory: Denies: cough, short of breath Cardiology: Denies: chest pain, edema, palpitations Gastrointestinal/Abdominal: Denies: abdominal pain, constipation, diarrhea, nausea, vomiting Genitourinary: Denies: dysuria, frequency, hematuria Musculoskeletal: States: back pain. Denies: joint pain, joint swelling, muscle pain, muscle stiffness, neck pain Skin: Denies: change in color, lesions, rash Neurological: States: headache. Denies: numbness, weakness Past Medical History (General) - Patient Medical History Hx Seizures: No Hx Stroke: No Hx Dementia: No Hx Asthma: No Hx of COPD: No Hx Cardiac Disorders: Yes Hx Congestive Heart Failure: No Hx Pacemaker: No Hx Hypertension: No Hx Thyroid Disease: No Hx Diabetes: Yes Hx Gastroesophageal Reflux: Yes - and constipation Hx Renal Disease: No Hx Cancer: No Hx of HIV: No Hx Hepatitis C: No Hx MRSA: Yes - Head,Finger 2008, Head 2009, Urine 2010, Face 2012 MRSA Source:: Wound - Vaccination History Hx Tetanus, Diphtheria Vaccination: Yes Hx Influenza Vaccination: Yes Hx Pneumococcal Vaccination: No - Social History Hx Tobacco Use: Yes Hx Chewing Tobacco Use: No Hx Alcohol Use: No Hx Substance Use: Yes Hx Substance Use Treatment: Yes Hx Depression: Yes Hx Physical Abuse: No Hx Emotional Abuse: No Hx Suspected Abuse: No - Female History Patient : No Family Medical History - Family History Mother Family History: Unknown Living Status: Still Living Hx Family Diabetes: Yes - mom Physical Exam - Physical Exam General Appearance: Alert, No apparent distress, Well Developed, Well Nourished, Other - distractable moaning 2/2 pain Eye Exam: bilateral normal, bilateral abnormal EOM Ears, Nose, Throat: normal ENT inspection, other - Head is atraumatic Neck: non-tender, full range of motion, supple, normal inspection Respiratory: chest non-tender, lungs clear, normal breath sounds, no respiratory distress, no accessory muscle use Cardiovascular/Chest: normal peripheral pulses, regular rate, rhythm, no edema, no gallop, no JVD, no murmur Peripheral Pulses: radial,right: 2+, radial,left: 2+ Gastrointestinal/Abdominal: normal bowel sounds, non tender, soft, no organomegaly, no pulsatile mass Back Exam: normal inspection, no CVA tenderness, vertebral tenderness - L spine, none noted elsewhere Extremity: normal range of motion, non-tender, normal inspection, no pedal edema, no calf tenderness Neurologic: baseball scout II-XII nml as tested, no motor/sensory deficits, alert, normal mood/affect, oriented x 3, other - Slight decreased strength LLE that is chronic in nature per pt DTR: 2+: Patellar, left, Patellar, right Skin Exam: normal color, warm/dry Lymphatic: no adenopathy Progress - Progress Progress: MIPS: CT head performed / headache 02/13/19 13:25 Pt is feeling improved. Tachycardia resolved with treatment of pain. I have explained and reviewed all results with the pt. I explained that emergent conditions may arise and to return to the ER for new, worsening, or any persistent conditions. I've explained the importance of f/u for recheck. All questions and concerns addressed at this time. Pt understands and agrees with plan. Pt well appearing, NAD, is stable for discharge. Anamaria Jameson MD Emergency Medicine Physician Billing Number [id number] - Results/Orders Results/Orders: Laboratory Results - last 24 hr 02/13/19 02/13/19 11:57 11:57 WBC 4.6 L RBC 4.77 Hgb 13.8 Hct 40.7 MCV 85.4 MCH 28.9 MCHC 33.9 RDW 16.7 H Plt Count 225 MPV 8.0 Absolute Neuts (auto) 2.70 Absolute Lymphs (auto) 1.40 Absolute Monos (auto) 0.30 Absolute Eos (auto) 0.10 Absolute Basos (auto) 0.00 Neutrophils % 59.2 Lymphocytes % 30.7 Monocytes % 6.7 Eosinophils % 2.6 Basophils % 0.8 Sodium 134 L Potassium 4.1 Chloride 95 L Carbon Dioxide 26 Anion Gap 17.1 BUN 12 Creatinine 0.72 BUN/Creatinine Ratio 16.7 Random Glucose 368 H Serum Osmolality 283.[address] L spine: EXAM DESCRIPTION: Lumbar Spine: Computed Tomography. CLINICAL HISTORY: 48 years Female fall, pain COMPARISON: CT scan of the head noncontrast on this visit. MRI scan lumbar spine without contrast March 2018. TECHNIQUE: Spiral, axial 2.5 x 2.5 mm scans through the lumbarspine without contrast. Coronal and sagittal 2.0 mm Reconstructions Total Exam DLP: 378.68 mGy-cm. This exam was performed according to our departmental dose-optimization program which includes automated exposure control, adjustment of the mA and/or kV according to patient size and/or use of iterative reconstruction technique; to reduce radiation dose to as low as reasonably achievable (ALARA). FINDINGS: Posterior fusion construct L4-L5 with interbody fusion device. This devices predominantly in the right side of the disc space with minimal subsidence on the posterior right lateral aspect. Trace anterolisthesis less than 2 mm. Hardware is intact. Normal bone density around the hardware. No soft tissue mass around the hardware. Bilateral facet joint arthrosis and fusion. Minimal soft tissue bulging from the posterior disc space but no canal stenosis. Moderate to severe bilateral foraminal narrowing more on the right. Minimal disc space loss at L5-S1 with no significant disc bulge posteriorly. No bony canal or bony foraminal stenosis. L5 transverse processes are sacralized with partial articulations with the bilateral sacral ala of S1, more on the left than right. Stable since prior study. No fracture of the posterior elements. L3-L4: This disc space is well demonstrated on axial series #2, image 52. Disc space maintained with minimal posterior bulging. No compression type vertebral body fracture. Bilateral facet arthrosis and minimal ligament thickening no canal or foraminal stenosis. Stable since the prior study. L2-L3: Diffuse spondylosis with endplate erosion and endplate sclerosis involving the right two thirds of the endplates but not the lateral left endplates. Soft tissue density posterior to the disc space effacing the anterior epidural fat in the canal the thecal sac and the bilateral superior subarticular recesses suggests a broad-based herniation. Possible impingement of the bilateral descending L3 nerve roots. Evaluation of the soft tissues is limited on CT scan. Bilateral facet arthrosis and hypertrophy of the posterior ligament with possible soft tissue canal stenosis but no bony stenosis. Bilateral moderate to severe foraminal narrowing. Similar findings on prior MRI scan. L1-L2: Disc space maintained with minimal posterior bulge. Bilateral hypertrophic facet arthrosis and thickening of the ligaments. Canal and bilateral foraminal narrowing but no stenosis. T12-L1: Minimal irregularity of the endplates. Minimal loss of the disc space. Tiny posterior bulge. Hypertrophic changes bilateral posterior facets with arthrosis and ligament thickening. Bony foraminal narrowing bilaterally more right than left with no stenosis of the foramina or canal. No compression type vertebral body fractures at any level. No fractures of the posterior transverse elements. Broad L1-L4 levoscoliosis. No significant spondylolisthesis at other levels. IMPRESSION: No compression type vertebral body fractures at any level. Posterior elements showing arthrosis and hypertrophy but no fracture. No effusion bony or hardware complications at L4-L5. Spondylosis and advanced again seen at L2-L3. Electronically signed by: Damion Vargas MD 02/13/2019 1:[address] Head: EXAM DESCRIPTION: Head: Computed Tomography. CLINICAL HISTORY: fall, pain COMPARISON: CT scan lumbar spine without contrast on the same visit. TECHNIQUE: Non-helical axial scans through the skull and brain, at 2.5 x 20 mm intervals, non-contrast. Coronal and sagittal 2.0 reconstructions. Total Exam DLP: 752.48 mGy-cm. This exam was performed according to our departmental dose-optimization program which includes automated exposure control, adjustment of the mA and/or kV according to patient size and/or use of iterative reconstruction technique; to reduce radiation dose to as low as reasonably achievable (ALARA). FINDINGS: No hemorrhage, no mass-effect, and no midline shift. Normal coffey-white matter differentiation. No abnormal radiodense material in the brain parenchyma. Vascular calcifications not seen; physiologic calcifications in the pineal gland and choroid plexus. No effacement or displacement of the ventricles, CSF spaces, or subdural spaces. No extra axial fluid collection or hemorrhage. No gross abnormalities of the bony calvarium. Included paranasal sinuses and mastoid air cells are well - aerated. IMPRESSION: 1. No hemorrhage, no mass effect, no midline shift. Normal noncontrast CT scan of the head without IV contrast. 2. CT scans are insensitive for detecting small CVAs in the first 24 hours after onset. Evaluation of the brain stem is also limited. If symptoms persist, consider NON-EMERGENT MRI scan of the brain with diffusion imaging. Electronically signed by: Damion Vargas MD 02/13/2019 12:44 PM [employer] Vital Signs - 24 hr 02/13/19 02/13/19 02/13/19 11:39 12:39 13:10 Temperature 97.7 F Pulse Rate [ 116 H 104 H 94 H Left Brachial] Respiratory 20 16 20 Rate Blood Pressure 123/90 141/85 148/100 [Left Arm] O2 Sat by Pulse 100 100 100 Oximetry Departure - Departure Clinical Impression: Lumbar back pain Fall Qualifiers: Encounter type: initial encounter Qualified Code(s): W19.XXXA - Unspecified fall, initial encounter Closed head injury Qualifiers: Encounter type: initial encounter Qualified Code(s): S09.90XA - Unspecified injury of head, initial encounter Time of Disposition: 13:15 Disposition: Discharge to Home or Self Care Health Concerns: Condition: stable Departure Forms: ED Discharge - Pt. Copy, Patient Portal Self Enrollment Instructions: DI for Trauma, Low Back Pain (DC) Referrals: Ramon Torres MD [Primary Care Provider] - 1-5 Days Prescriptions: Methocarbamol [Robaxin] 500 mg PO Q8H PRN #12 tab PRN Reason: Muscle Spasms Home Medications: Ambulatory Orders Atorvastatin Calcium [Lipitor] 10 mg PO DAILY 07/09/18 Citalopram Hydrobromide [Citalopram] 20 mg PO DAILY 07/09/18 Gabapentin 600 mg PO TID 07/09/18 Acetaminophen W/ Codeine [Tylenol W/ CODEINE #3] 1 ea PO Q6H #15 08/15/18 Dicyclomine HCl [Bentyl] 20 mg PO Q6HR PRN #20 tab 11/30/18 Docusate Sodium [Colace Cap] 100 mg PO BID #20 cap 11/30/18 Polyethylene Glycol 3350 [Miralax] 17 gm PO DAILY 20 Days #20 pckt 11/30/18 Amoxicillin & Pot Clavulanate [Augmentin Tab] 875 mg PO BID 10 Days #20 tab 12/18/18 Azithromycin 250 mg PO DAILY 5 Days #6 tab 12/18/18 Buspirone HCl [Buspirone Hydrochloride] 10 mg PO 12/18/18 Ferrous Sulfate [Fe Tabs] 325 mg PO 12/18/18 Insulin Aspart [Novolog Flexpen] 12/18/18 Insulin Detemir [Levemir] 0 unit SUBCU 12/18/18 Lactulose (Encephalopathy) [Lactulose] 10 gm PO 12/18/18 Levalbuterol Nebs [Xopenex NEBS] 1.25 mg NEB 12/18/18 Melatonin 10 mg PO 12/18/18 Methocarbamol [Robaxin] 750 mg PO PRN PRN #20 tab 12/18/18 Multiple Vitamin [Multi-Vitamin] 1 tab PO 12/18/18 Nicotine Patch 21 mg [Habitrol Patch 21mg] 21 mg TOP 12/18/18 Nystatin-Triamcin Cream [Mycolog II Cream] 15 gm TOP 12/18/18 Pantoprazole Tablet [Protonix] 40 mg PO ACBK 12/18/18 Polyethylene Glycol 3350 [Miralax] 34 gm PO DAILY 20 Days #20 pckt 12/18/18 Pregabalin [Lyrica] 50 mg PO 12/18/18 Quetiapine Fumarate 50 mg PO 12/18/18 Umeclidinium [place] [Incruse Ellipta] 12/18/18 raNITIdine HCL [Zantac] 150 mg PO 12/18/18 Acetaminophen W/ Codeine [Tylenol W/ CODEINE #3] 1 ea PO Q6HRS #12 12/27/18 Fluconazole [Diflucan Tab] 100 mg PO DAILY #2 tab 01/01/19 Fluconazole [Diflucan Tab] 100 mg PO DAILY #2 tab 01/01/19 Nitrofurantoin Monohydrate Mac [Macrobid] 100 mg PO BID #10 capsule 01/01/19 Nitrofurantoin Monohydrate Mac [Macrobid] 100 mg PO BID #10 capsule 01/01/19 Polyethylene Glycol 3350 [Peg 3350] 1 pow PO BID #30 pow 01/26/19 Methocarbamol [Robaxin] 500 mg PO Q8H PRN #12 tab 02/13/19 Additional Instructions: Follow up: [facility] As needed, if symptoms worsen
[2019-02-13] MEDS ORDERED: ACETAMINOPHEN IV 1000MG 100 ML ONE (12:02)
[2019-02-13] MEDS: SODIUM CHLORIDE 0.9% 1000ML 500 ML IVS ONE (12:09)
[2019-02-13] MEDS: ACETAMINOPHEN IV 1000MG 1,000 MG in PREMIX BOTTLE 1 BOTTLE IVPB ONE (12:10)
--- NOTE | 2019-02-13 12:46 | CT ---
EXAM DESCRIPTION: Head: Computed Tomography. CLINICAL HISTORY: fall, pain COMPARISON: CT scan lumbar spine without contrast on the same visit. TECHNIQUE: Non-helical axial scans through the skull and brain, at 2.5 x 20 mm intervals, non-contrast. Coronal and sagittal 2.0 reconstructions. Total Exam DLP: 752.48 mGy-cm. This exam was performed according to our departmental dose-optimization program which includes automated exposure control, adjustment of the mA and/or kV according to patient size and/or use of iterative reconstruction technique; to reduce radiation dose to as low as reasonably achievable (ALARA). FINDINGS: No hemorrhage, no mass-effect, and no midline shift. Normal coffey-white matter differentiation. No abnormal radiodense material in the brain parenchyma. Vascular calcifications not seen; physiologic calcifications in the pineal gland and choroid plexus. No effacement or displacement of the ventricles, CSF spaces, or subdural spaces. No extra axial fluid collection or hemorrhage. No gross abnormalities of the bony calvarium. Included paranasal sinuses and mastoid air cells are well - aerated. IMPRESSION: 1. No hemorrhage, no mass effect, no midline shift. Normal noncontrast CT scan of the head without IV contrast. 2. CT scans are insensitive for detecting small CVAs in the first 24 hours after onset. Evaluation of the brain stem is also limited. If symptoms persist, consider NON-EMERGENT MRI scan of the brain with diffusion imaging. Electronically signed by: Damion Vargas MD 02/13/2019 12:44 PM [facility]
[2019-02-13] MEDS: diazePAM 5 MG TAB PO ONE (12:51)
--- NOTE | 2019-02-13 13:11 | CT ---
EXAM DESCRIPTION: Lumbar Spine: Computed Tomography. CLINICAL HISTORY: 48 years Female fall, pain COMPARISON: CT scan of the head noncontrast on this visit. MRI scan lumbar spine without contrast March 2018. TECHNIQUE: Spiral, axial 2.5 x 2.5 mm scans through the lumbarspine without contrast. Coronal and sagittal 2.0 mm Reconstructions Total Exam DLP: 378.68 mGy-cm. This exam was performed according to our departmental dose-optimization program which includes automated exposure control, adjustment of the mA and/or kV according to patient size and/or use of iterative reconstruction technique; to reduce radiation dose to as low as reasonably achievable (ALARA). FINDINGS: Posterior fusion construct L4-L5 with interbody fusion device. This devices predominantly in the right side of the disc space with minimal subsidence on the posterior right lateral aspect. Trace anterolisthesis less than 2 mm. Hardware is intact. Normal bone density around the hardware. No soft tissue mass around the hardware. Bilateral facet joint arthrosis and fusion. Minimal soft tissue bulging from the posterior disc space but no canal stenosis. Moderate to severe bilateral foraminal narrowing more on the right. Minimal disc space loss at L5-S1 with no significant disc bulge posteriorly. No bony canal or bony foraminal stenosis. L5 transverse processes are sacralized with partial articulations with the bilateral sacral ala of S1, more on the left than right. Stable since prior study. No fracture of the posterior elements. L3-L4: This disc space is well demonstrated on axial series #2, image 52. Disc space maintained with minimal posterior bulging. No compression type vertebral body fracture. Bilateral facet arthrosis and minimal ligament thickening no canal or foraminal stenosis. Stable since the prior study. L2-L3: Diffuse spondylosis with endplate erosion and endplate sclerosis involving the right two thirds of the endplates but not the lateral left endplates. Soft tissue density posterior to the disc space effacing the anterior epidural fat in the canal the thecal sac and the bilateral superior subarticular recesses suggests a broad-based herniation. Possible impingement of the bilateral descending L3 nerve roots. Evaluation of the soft tissues is limited on CT scan. Bilateral facet arthrosis and hypertrophy of the posterior ligament with possible soft tissue canal stenosis but no bony stenosis. Bilateral moderate to severe foraminal narrowing. Similar findings on prior MRI scan. L1-L2: Disc space maintained with minimal posterior bulge. Bilateral hypertrophic facet arthrosis and thickening of the ligaments. Canal and bilateral foraminal narrowing but no stenosis. T12-L1: Minimal irregularity of the endplates. Minimal loss of the disc space. Tiny posterior bulge. Hypertrophic changes bilateral posterior facets with arthrosis and ligament thickening. Bony foraminal narrowing bilaterally more right than left with no stenosis of the foramina or canal. No compression type vertebral body fractures at any level. No fractures of the posterior transverse elements. Broad L1-L4 levoscoliosis. No significant spondylolisthesis at other levels. IMPRESSION: No compression type vertebral body fractures at any level. Posterior elements showing arthrosis and hypertrophy but no fracture. No effusion bony or hardware complications at L4-L5. Spondylosis and advanced again seen at L2-L3. Electronically signed by: Damion Vargas MD 02/13/2019 1:09 PM [facility]
[2019-02-13 13:42] VITALS: BP 145/100; O2SAT 99
== END 2019-02-13 13:42 | disposition home or self-care (01) ==
LOC: ER 11:36
DX: S09.90XA Unspecified injury of head, initial encounter (principal); M54.5 Low back pain; M47.817 Spondylosis without myelopathy or radiculopathy, lumbosacral region; I51.9 Heart disease, unspecified; E11.9 Type 2 diabetes mellitus without complications; K21.9 Gastro-esophageal reflux disease without esophagitis; F32.9 Major depressive disorder, single episode, unspecified; Z87.891 Personal history of nicotine dependence; Z79.899 Other long term (current) drug therapy; Z79.4 Long term (current) use of insulin; W18.30XA Fall on same level, unspecified, initial encounter; Y92.9 Unspecified place or not applicable
CPT/HCPCS: 70450; 72131; 80048; 85025; J7030

== ENCOUNTER → 2019-02-27 | Outpatient (CLI) | payer MEDICARE, MEDICAID ==
--- NOTE | 2019-02-27 15:39 | RAD ---
EXAM DESCRIPTION: Pelvis CLINICAL HISTORY: 48 years Female, RT HIP PAIN COMPARISON: February 27, 2019. TECHNIQUE: Single AP radiograph of the pelvis. FINDINGS: The pelvic ring appears grossly intact on this single AP radiograph. Bilateral sacroiliac joints appear normal. Bilateral hip joints demonstrate mild to moderate osteoarthritic changes. The visualized lumbo-sacral spine demonstrates moderate degenerative changes with posterior spinal fixation hardware. IMPRESSION: Single AP radiograph of the pelvis demonstrates grossly intact pelvic ring. Mild to moderate bilateral hip joint osteoarthritic changes. Electronically signed by: Robert Mendieta MD 02/27/2019 3:37 PM [facility]
--- NOTE | 2019-02-27 15:48 | RAD ---
EXAM DESCRIPTION: Hip,Right 2 Views CLINICAL HISTORY: 48 years Female, RT HIP PAIN COMPARISON: None available. FINDINGS: The visualized bones are well-mineralized. No acute fracture or dislocation. The femoral head is well contained in the acetabular fossa. 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 Mild right hip joint osteoarthritic changes noted. The overlying soft tissues appear grossly unremarkable. IMPRESSION: 1. No acute fracture or dislocation. 2. 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
--- NOTE | 2019-02-27 20:18 | US ---
US THYROID CLINICAL STATEMENT: NODULE. COMPARISON: None TECHNIQUE: Transcutaneous scanning, grayscale and Doppler modes. FINDINGS: Size right thyroid lobe: 4.8 x 2.4 x 2.1 cm Size left thyroid lobe: 4.9 x 2.0 x 1.7 cm Size isthmus: 0.42 cm Estimated total number of nodules greater than or equal to 1 cm: 2 Nodule 1: Size: 1.4 x 1.2 x 1.0 cm Location: Right Mid Composition: solid or almost completely solid: 2 points Echogenicity: hypoechoic: 2 points Shape: wider than tall: 0 points Margins: smooth: 0 points Echogenic foci: peripheral calcifications: 2 points ACR Total Points: 6; ACR TI-RADS risk category: TR4 - moderately suspicious nodule. Nodule 2: Size: 1.1 x 1.1 x 0.8 cm Location: Left Mid Composition: solid or almost completely solid: 2 points Echogenicity: hypoechoic: 2 points Shape: wider than tall: 0 points Margins: smooth: 0 points Echogenic foci: None. ACR Total Points: 4; ACR TI-RADS risk category: TR4 - moderately suspicious nodule. No dominant solid mass or distinct cyst in the soft tissue around the thyroid gland. IMPRESSION: 1. Nodule 1: ACR TI-RADS 2017 Category TR4. Recommend: Follow-up ultrasound in 1 year.. Recommendations based upon [employer] Best Practice recommendations and ACR TI-RADS 2017 guidelines. Please see below*. 2. Nodule 2: ACR TI-RADS 2017 Category TR4. Recommend: Follow-up ultrasound in 1 year. 3. Soft tissue around the thyroid gland is unremarkable. *ACR TI-RADS 2017 Recommendations for imaging follow-up of nodules: TR1: No FNA or follow up TR2: No FNA or follow up TR3: FNA if >/= 2.5 cm, follow up if 1.5 - 2.4 cm in 1, 3, and 5 years TR4: FNA if >/= 1.5 cm, follow up if 1.0 - 1.4 cm in 1, 2, 3, and 5 years TR5: FNA if >/= 1.0 cm, follow up if 0.5 - 0.9 cm every year for 5 years ACR TI-RADS recommends that no more than two nodules with the highest ACR TI-RADS total point should be biopsied and no more than four nodules should be followed. These recommendations do not apply to patients with increased risk for thyroid cancer or patients with symptomatic thyroid disease. Electronically signed by: Damion Vargas MD 02/27/2019 8:16 PM [facility]
== END ==
LOC: RAD 11:16
PROVIDERS: ATTEND Family Medicine
DX: M16.0 Bilateral primary osteoarthritis of hip (principal); M25.851 Other specified joint disorders, right hip; E04.1 Nontoxic single thyroid nodule

== ENCOUNTER 2019-03-08 16:09 | Emergency (ER) | payer MEDICARE, MEDICAID ==
--- NOTE | 2019-03-08 09:46 | RAD ---
EXAM DESCRIPTION: Knee,Left 1 or 2 Views CLINICAL HISTORY: 48 years Female, PAIN IN LEFT KNEE TECHNIQUE: 2 views of the left knee were performed. COMPARISON: January 29, 2019. FINDINGS: The visualized bones appear well mineralized. No acute fracture or dislocation. The medial and lateral compartment joint space are well-maintained. The soft tissues appear grossly unremarkable. IMPRESSION: 1. Grossly unremarkable radiographs of the left knee. Electronically signed by: Robert Mendieta MD 03/08/2019 9:45 AM [facility]
[2019-03-08] MEDS ORDERED: HALOPERIDOL LACTATE INJ 5 MG/ML VIAL IV ONE (16:37)
--- NOTE | 2019-03-08 16:43 | ED.PDOC ---
History of Present Illness - General Chief Complaint: Abdominal Pain Stated Complaint: abdominal pain Time Seen by Provider: 03/08/19 16:18 Information Source: patient Exam Limitations: no limitations - History of Present Illness Initial Comments: 48 yo F who presents for acute on chronic abd pain. Pt has been seen multiple times by myself for the pain, she states it is the same in nature, periumbilical/epigastric burning in nature, constant, non radiating. Has recently had a normal endoscopy and colonoscopy for this pain, CT on last visit on 01/29 showed small hiatal hernia and possible ileus. Pt is on miralax, metamucil, bentyl and carafate; now having loose BM. Has only been able to eat an apple today. Denies f/c, cough, congestion, CP, SOB, n/v, urinary sx, blood in stool. Review of Systems - Review of Systems Constitutional: Denies: chills, fever EENTM: Denies: nose congestion, throat pain Respiratory: Denies: cough, short of breath Cardiology: Denies: chest pain, palpitations Gastrointestinal/Abdominal: States: abdominal pain, other - loose BM. Denies: constipation, nausea, vomiting Genitourinary: Denies: dysuria, frequency, hematuria Musculoskeletal: Denies: back pain, neck pain Skin: Denies: lesions, rash Neurological: Denies: headache, numbness, weakness Past Medical History (General) - Patient Medical History Hx Seizures: No Hx Stroke: No Hx Dementia: No Hx Asthma: No Hx of COPD: No Hx Cardiac Disorders: Yes Hx Congestive Heart Failure: No Hx Pacemaker: No Hx Hypertension: No Hx Thyroid Disease: No Hx Diabetes: Yes Hx Gastroesophageal Reflux: Yes - and constipation Hx Renal Disease: No Hx Cancer: No Hx of HIV: No Hx Hepatitis C: No Hx MRSA: Yes - Head,Finger 2008, Head 2009, Urine 2010, Face 2011 MRSA Source:: Wound Surgical History: appendectomy, cholecystectomy - Vaccination History Hx Tetanus, Diphtheria Vaccination: No Hx Influenza Vaccination: Yes Hx Pneumococcal Vaccination: No - Social History Hx Tobacco Use: Yes Hx Chewing Tobacco Use: No Hx Alcohol Use: No Hx Substance Use: Yes Hx Substance Use Treatment: Yes Hx Depression: Yes Hx Physical Abuse: No Hx Emotional Abuse: No Hx Suspected Abuse: No - Activities of Daily Living Hospice Agency (if applicable):: None - Female History Patient is a Female of Child Bearing Age (10 -59 yrs old): No Patient : No - Triage Comment ED Triage Comment: pt voices severe abdominal pain that started this morning. pt voices she has been having this type of pain intermittent for the last couple months off and on. pt voices seeing her GI doctor, Dr. gill and dr. j[facility] know that there was nothing else he could do. She had EGD and colonoscopy completed in january 2019. Family Medical History - Family History Mother Family History: Unknown Living Status: Still Living Hx Family Diabetes: Yes - mom Physical Exam - Physical Exam General Appearance: Alert, No apparent distress, Well Developed, Well Nourished, Other - Appears uncomfortable but is distractible; anxious Eyes, Ears, Nose, Throat Exam: normal ENT inspection Neck: full range of motion, supple Respiratory: lungs clear, normal breath sounds, no respiratory distress, no accessory muscle use Cardiovascular/Chest: normal peripheral pulses, no edema, no gallop, no JVD, no murmur, tachycardia Peripheral Pulses: No deficit Gastrointestinal/Abdominal: normal bowel sounds, soft, no organomegaly, no pulsatile mass, tenderness - periumbilical and epigastric that is distractible Back Exam: no CVA tenderness, no vertebral tenderness Extremity: normal range of motion, non-tender, normal inspection, no pedal edema, no calf tenderness, normal capillary refill Neurologic: no motor/sensory deficits, alert, normal mood/affect, oriented x 3 Skin Exam: normal color, warm/dry Progress - Progress Progress: 03/08/19 17:[address] Prakash, no change since imaging around 6 weeks ago, recommends outpt follow up in clinic, to avoid fatty foods, lots of water. Strong return warnings. 03/08/19 18:04 Pain has returned, will do GI cocktail. 03/08/19 19:31 I have explained and reviewed all results with the pt. Pt requesting more pain medication before d/c home, will give a dose of toradol. Abd NT, pt resting comfortable in bed. Pt is comfortable with d/c home. I explained that emergent conditions may arise and to return to the ER for new, worsening, or any persistent conditions including but not limited to f/c, abd distention/firmness, worsening pain, inability to mike po, blood in stool or emesis. I've explained the importance of f/u for recheck. All questions and concerns addressed at this time. Pt understands and agrees with plan. Pt well appearing, NAD, is stable for discharge. Anamaria Jameson MD Emergency Medicine Physician Billing Number [id number] - Results/Orders Results/Orders: 03/08/19 16:45 EKG STAT Laboratory Results - last 24 hr 03/08/19 03/08/19 03/08/19 16:30 16:30 16:50 WBC 5.6 RBC 5.00 Hgb 14.7 Hct 43.0 MCV 86.1 MCH 29.5 MCHC 34.3 RDW 16.2 H Plt Count 239 MPV 7.9 Absolute Neuts (auto) 3.40 Absolute Lymphs (auto) 1.60 Absolute Monos (auto) 0.50 Absolute Eos (auto) 0.10 Absolute Basos (auto) 0.00 Neutrophils % 60.3 Lymphocytes % 29.4 Monocytes % 8.5 Eosinophils % 1.1 Basophils % 0.7 Sodium 131 L Potassium 4.0 Chloride 92 L Carbon Dioxide 27 Anion Gap 16.0 BUN 16 Creatinine 0.62 BUN/Creatinine Ratio 25.8 H POC Glucose Random Glucose 383 H Serum Osmolality 279.7 Calcium 9.9 Total Bilirubin 0.6 AST 16 ALT 16 Alkaline Phosphatase 62 Serum Total Protein 8.3 H Albumin 4.1 Globulin 4.2 H Albumin/Globulin Ratio 1.0 L Urine Color Urine Appearance Urine pH Ur Specific Ralston Urine Protein Urine Glucose (UA) Urine Ketones Urine Blood Urine Nitrite Urine Bilirubin Urine Urobilinogen Ur Leukocyte Esterase Urine RBC Urine WBC Ur Epithelial Cells Amorphous Sediment Urine Bacteria Urine Yeast Urine HCG, Qual Negative 03/08/19 03/08/19 03/08/19 16:50 17:57 18:40 WBC RBC Hgb Hct MCV MCH MCHC RDW Plt Count MPV Absolute Neuts (auto) Absolute Lymphs (auto) Absolute Monos (auto) Absolute Eos (auto) Absolute Basos (auto) Neutrophils % Lymphocytes % Monocytes % Eosinophils % Basophils % Sodium Potassium Chloride Carbon Dioxide Anion Gap BUN Creatinine BUN/Creatinine Ratio POC Glucose 345 H 297 H Random Glucose Serum Osmolality Calcium Total Bilirubin AST ALT Alkaline Phosphatase Serum Total Protein Albumin Globulin Albumin/Globulin Ratio Urine Color Yellow Urine Appearance Clear Urine pH 7.0 Ur Specific Ralston 1.015 Urine Protein Negative Urine Glucose (UA) 500 H Urine Ketones Negative Urine Blood Trace-lysed H Urine Nitrite Negative Urine Bilirubin Negative Urine Urobilinogen 0.2 Ur Leukocyte Esterase Trace H Urine RBC 3-5 H Urine WBC 3-5 H Ur Epithelial Cells 3-5 Amorphous Sediment 1+ Urine Bacteria Rare Urine Yeast 1+ budding H Urine HCG, Qual Abd series: PROCEDURE: XR Abdomen Series CLINICAL HISTORY: 48 years Female pain TECHNIQUE: One view of the chest and two views of the abdomen are provided. COMPARISON: Correlation is made with the radiographs dated 01/26/2019 FINDINGS: The lungs are clear without focal consolidation, effusion, or pneumothorax. The cardiomediastinal silhouette and central pulmonary vasculature are normal. There are scattered gas-filled loops of small bowel in the abdomen, nonspecific. Gas and stool visualized in the colon. No evidence of high-grade obstruction or free intraperitoneal air. Prior cholecystectomy. Postsurgical and degenerative changes in the lumbar spine. IMPRESSION: Possible mild small bowel ileus. Electronically signed by: Angie Richardson MD 03/08/2019 5:29 PM [employer] Vital Signs - 24 hr 03/08/19 03/08/19 03/08/19 16:29 17:07 17:09 Temperature 98.2 F 98.2 F Pulse Rate [ 112 H 112 H 103 H brachial] Respiratory 18 18 18 Rate Blood Pressure 126/98 105/84 [Left Arm] O2 Sat by Pulse 99 95 Oximetry 03/08/19 03/08/19 03/08/19 18:00 19:00 19:50 Temperature 97.5 F L Pulse Rate [ 96 H 74 102 H brachial] Respiratory 20 18 18 Rate Blood Pressure 168/105 177/114 152/95 [Left Arm] O2 Sat by Pulse 99 94 L 98 Oximetry - EKG/XRAY/CT EKG: Sinus, Tachy, no ST T wave changes Comments: Low voltage, q waves inferior and anterolateral Departure - Departure Clinical Impression: Hyperglycemia Abdominal pain Qualifiers: Abdominal location: unspecified location Qualified Code(s): R10.9 - Unspecified abdominal pain Time of Disposition: 19:30 Disposition: Discharge to Home or Self Care Health Concerns: condition: stable Departure Forms: ED Discharge - Pt. Copy, Patient Portal Self Enrollment Instructions: DI for Abdominal Pain-Adult Diet: bland diet Referrals: Ramon Torres MD [Primary Care Provider] - 1-5 Days Yonathan Prakash MD [Active Staff] - 1-5 Days Home Medications: Ambulatory Orders Atorvastatin Calcium [Lipitor] 10 mg PO DAILY 07/09/18 Citalopram Hydrobromide [Citalopram] 20 mg PO DAILY 07/09/18 Gabapentin 600 mg PO TID 07/09/18 Acetaminophen W/ Codeine [Tylenol W/ CODEINE #3] 1 ea PO Q6H #15 08/15/18 Dicyclomine HCl [Bentyl] 20 mg PO Q6HR PRN #20 tab 11/30/18 Docusate Sodium [Colace Cap] 100 mg PO BID #20 cap 11/30/18 Polyethylene Glycol 3350 [Miralax] 17 gm PO DAILY 20 Days #20 pckt 11/30/18 Amoxicillin & Pot Clavulanate [Augmentin Tab] 875 mg PO BID 10 Days #20 tab 12/18/18 Buspirone HCl [Buspirone Hydrochloride] 10 mg PO 12/18/18 Ferrous Sulfate [Fe Tabs] 325 mg PO 12/18/18 Insulin Aspart [Novolog Flexpen] 12/18/18 Insulin Detemir [Levemir] 0 unit SUBCU 12/18/18 Lactulose (Encephalopathy) [Lactulose] 10 gm PO 12/18/18 Levalbuterol Nebs [Xopenex NEBS] 1.25 mg NEB 12/18/18 Methocarbamol [Robaxin] 750 mg PO PRN PRN #20 tab 12/18/18 Multiple Vitamin [Multi-Vitamin] 1 tab PO 12/18/18 Nicotine Patch 21 mg [Habitrol Patch 21mg] 21 mg TOP 12/18/18 Nystatin-Triamcin Cream [Mycolog II Cream] 15 gm TOP 12/18/18 Pantoprazole Tablet [Protonix] 40 mg PO ACBK 12/18/18 Polyethylene Glycol 3350 [Miralax] 34 gm PO DAILY 20 Days #20 pckt 12/18/18 Pregabalin [Lyrica] 50 mg PO 12/18/18 RX: Azithromycin 250 mg PO DAILY 5 Days #6 tab 12/18/18 RX: Melatonin 10 mg PO 12/18/18 RX: Quetiapine Fumarate 50 mg PO 12/18/18 Umeclidinium Morse [Incruse Ellipta] 12/18/18 raNITIdine HCL [Zantac] 150 mg PO 12/18/18 Acetaminophen W/ Codeine [Tylenol W/ CODEINE #3] 1 ea PO Q6HRS #12 12/27/18 Fluconazole [Diflucan Tab] 100 mg PO DAILY #2 tab 01/01/19 Fluconazole [Diflucan Tab] 100 mg PO DAILY #2 tab 01/01/19 Nitrofurantoin Monohydrate Mac [Macrobid] 100 mg PO BID #10 capsule 01/01/19 Nitrofurantoin Monohydrate Mac [Macrobid] 100 mg PO BID #10 capsule 01/01/19 Polyethylene Glycol 3350 [Peg 3350] 1 pow PO BID #30 pow 01/26/19 Methocarbamol [Robaxin] 500 mg PO Q8H PRN #12 tab 02/13/19 Additional Instructions: Follow up: [facility] As needed, if symptoms worsen
[2019-03-08] MEDS ORDERED: SODIUM CHLORIDE 0.9% 1000ML 1,000 ML IVS ONE (17:13)
--- NOTE | 2019-03-08 17:35 | RAD ---
PROCEDURE: XR Abdomen Series CLINICAL HISTORY: 48 years Female pain TECHNIQUE: One view of the chest and two views of the abdomen are provided. COMPARISON: Correlation is made with the radiographs dated 01/26/2019 FINDINGS: The lungs are clear without focal consolidation, effusion, or pneumothorax. The cardiomediastinal silhouette and central pulmonary vasculature are normal. There are scattered gas-filled loops of small bowel in the abdomen, nonspecific. Gas and stool visualized in the colon. No evidence of high-grade obstruction or free intraperitoneal air. Prior cholecystectomy. Postsurgical and degenerative changes in the lumbar spine. IMPRESSION: Possible mild small bowel ileus. Electronically signed by: Angie Richardson MD 03/08/2019 5:29 PM [employer]
[2019-03-08] MEDS ORDERED: ALUM & MAG HYDROX-SIMETHICONE 30 ML, LIDOCAINE VISCOUS 2% 15 ML PO ONE ×2 (18:04)
[2019-03-08] MEDS ORDERED: ALUM & MAG HYDROX-SIMETHICONE 30 ML UD ONE (18:08)
[2019-03-08] MEDS ORDERED: LIDOCAINE HCL 2% (MOUTH-THROAT) 15 ML UD ONE (18:08)
[2019-03-08 19:10] VITALS: TEMP 97.5
[2019-03-08] MEDS ORDERED: KETOROLAC TROMETHAMINE INJ 30 MG/ML VIAL IV ONE (19:30)
[2019-03-08 19:51] VITALS: BP 152/95; O2SAT 98
== END 2019-03-08 19:51 | disposition home or self-care (01) ==
LOC: ER 16:09
DX: R10.30 Lower abdominal pain, unspecified (principal); R10.13 Epigastric pain; E11.65 Type 2 diabetes mellitus with hyperglycemia; R00.0 Tachycardia, unspecified; K21.9 Gastro-esophageal reflux disease without esophagitis; I51.9 Heart disease, unspecified; F32.9 Major depressive disorder, single episode, unspecified; Z90.49 Acquired absence of other specified parts of digestive tract; Z87.891 Personal history of nicotine dependence; Z79.899 Other long term (current) drug therapy; Z79.4 Long term (current) use of insulin
CPT/HCPCS: 36415; 36416; 74019; 80053; 81001; 81025; 82948; 85025; 93005; J1630; J1885; J7030

== ENCOUNTER → 2019-04-27 | Outpatient (CLI) | payer MEDICARE, MEDICAID ==
--- NOTE | 2019-04-30 09:25 | MRI ---
EXAM DESCRIPTION: Thoracic Spine w/o Contrast: Magnetic Resonance Imaging. CLINICAL HISTORY: THORACIC SPONDYLOSIS COMPARISON: MRI scan lumbar spine March 2018. TECHNIQUE: Multiplanar, multiple standard sequences, non contrast MRI, thoracic spine. FINDINGS: T10-T11: Disc desiccation anterior disc bulge and anterior moderate endplate reactive changes. Posterior disc bulge in the midline into the left of midline abutting the cord and the left T10 nerve. Near stenosis of the left foramen secondary to bulge and bilateral degenerative hypertrophic facets. T7-8 disc desiccation and disc space loss. Right posterior disc bulge abutting the cord and the exiting right C7 nerve. Mild right foraminal narrowing. T5-T6: Disc desiccation and posterior midline and left paramedian disc bulge abutting the cord and abutting the left C5 nerve. No stenosis of the left foramen. T4-T5: Posterior midline bulge not abutting the cord but abutting the thecal sac. Mild canal narrowing. Bilateral foramina are patent. T2-T3: Disc desiccation posterior disc bulge abutting the cord and also abutting the left T2 nerve. Canal and bilateral foraminal narrowing. Diffuse hyperintense T1 and T2 signal in the C7 vertebral body not involving the pedicles. Normal signal on inversion recovery sequence indicating a large hemangioma. Significant spondylosis of the C7-T1 disc space especially to the right of midline. Large uncinate spur and possible stenosis of the right neural foramen. Retrolisthesis. Posterior midline disc protrusion impressing on the cord and the bilateral C8 nerves. Also posterior flavum ligament thickening resulting in mild central canal stenosis. T8-9 and T9-T10 disc space loss with disc desiccation no significant bulge. Narrowing of the foramina due to hypertrophic facet degeneration. Remaining discs with normal signal. Disc spaces are preserved. Canal and foramina are patent. Facet joints are unremarkable. Conus terminates T12-L1. Cord with normal signal, no compression. No scoliosis. Paravertebral soft tissues are unremarkable. Otherwise normal marrow signal in the remaining vertebral bodies and the posterior elements. Vertebral bodies are not compressed at any level. IMPRESSION: 1. C7-T1 retrolisthesis with posterior bulging or disc and thickened ligaments resulting in borderline to mild central canal stenosis. Hypertrophic right uncinate spur and right side disc osteophyte complex resulting in right neural foraminal stenosis and possible impingement right C8 nerve. Possible large hemangioma T1 vertebral body. Consider follow-up MRI scan of the cervical spine to evaluate spondylosis and disc spaces at other levels. 2. Multiple levels of the desiccated and bulging discs. Posterior left T10-T11 disc bulge abutting the cord in the left T10 nerve. Right posterior T7-T8 disc bulge abutting the cord and the exiting right C7 nerve. Posterior left T5-T6 disc bulge abutting the cord and abutting the left C5 nerve. T2-T3 disc bulge abutting the cord and the left T2 nerve. Electronically signed by: Damion Vargas MD 04/30/2019 9:23 AM [facility]
== END ==
LOC: MRI 14:00
DX: M47.894 Other spondylosis, thoracic region (principal); M50.33 Other cervical disc degeneration, cervicothoracic region; M51.34 Other intervertebral disc degeneration, thoracic region; M51.84 Other intervertebral disc disorders, thoracic region; M48.02 Spinal stenosis, cervical region; M25.78 Osteophyte, vertebrae

== ENCOUNTER → 2020-02-26 | Outpatient (CLI) | payer MEDICARE, MEDICAID | LOC: YCFC.O 15:56 | PROVIDERS: ATTEND Family Medicine | DX: Z11.59 Encounter for screening for other viral diseases (principal) ==

== ENCOUNTER → 2020-02-27 | Outpatient (CLI) | payer MEDICARE, MEDICAID ==
--- NOTE | 2020-02-28 13:00 | US ---
EXAM DESCRIPTION: Extremity,Lower David Arteries: Ultrasound. CLINICAL HISTORY: PVD COMPARISON: Bilateral lower extremity deep venous 2-dimensional/Doppler ultrasound, and bilateral lower extremity Doppler arterial evaluation. Outside imaging facility October 2018 TECHNIQUE: Doppler evaluation of the bilateral lower extremity arterial flow waveforms and velocities. FINDINGS: Arterial waveforms in the right lower extremity are multiphasic from the right common femoral artery through the right posterior tibial artery. Monophasic flow in the right dorsalis pedis artery.. Arterial waveforms in the left lower extremity are multiphasic from the left common femoral artery through the left popliteal artery. Monophasic in the left peroneal artery, left posterior tibial artery, and left dorsalis pedis artery.. Comments: Marked elevation of velocity in the distal right posterior tibial artery. Decreased velocity in the right dorsalis pedis artery. IMPRESSION: Doppler ultrasound of the bilateral lower extremity arterial system shows at least mild atherosclerotic occlusive disease in the bilateral lower extremities below the knees. Significant elevation of velocity in the distal right posterior tibial artery suggests a proximal stenosis in the vessel. Probable stenosis of unknown degree in the right anterior tibial artery, and significant narrowing or early stenosis distal to the left popliteal artery. This has apparently progressed since the prior outside study. Consider follow-up bilateral lower extremity CTA. Electronically signed by: Damion Vargas MD 02/28/2020 12:58 PM [employer]
== END ==
LOC: LAB.O 08:36
PROVIDERS: ATTEND Family Medicine
DX: I70.203 Unspecified atherosclerosis of native arteries of extremities, bilateral legs (principal); L02.811 Cutaneous abscess of head [any part, except face]; E11.9 Type 2 diabetes mellitus without complications; E78.5 Hyperlipidemia, unspecified; E04.1 Nontoxic single thyroid nodule; Z79.899 Other long term (current) drug therapy

== ENCOUNTER → 2020-03-11 | Outpatient (CLI) | payer MEDICARE, MEDICAID | LOC: YCFC.O 13:53 | PROVIDERS: ATTEND Nurse Practitioner Family | DX: Z11.59 Encounter for screening for other viral diseases (principal); Z20.828 Contact with and (suspected) exposure to other viral communicable diseases ==